=== PATIENT | female | born 1960 | race Caucasian/White ===

== ENCOUNTER 2019-01-17 11:28 | Inpatient (IN) | payer OTHER ==
[~2019-01-17] VITALS: Ht 167.6 cm; Wt 67.5 kg
[2019-01-17] MEDS: INSULIN GLARGINE [LANTus] (100 UNITS/ML) SYG SC SCH (02:45)
[2019-01-17] MEDS ORDERED: ONDANSETRON 4 MG INJ IV STA ×2 (12:06→13:52)
[2019-01-17] MEDS ORDERED: SOD CHLORIDE 0.9% 1,000 ML IV STA (12:06)
--- NOTE | 2019-01-17 12:21 | ERD ---
ER Documentation Chief Complaint Chief Complaint pt is bib family with c/o vomiting , abd pain and feeling weak x 1 wk HPI This is a 58-year-old woman who suspect she has the flu due to 2 to 3 days of cough, congestion, and multiple episodes of clear nonbloody nonbilious emesis. Patient denies abdominal pain or diarrhea, no dysuria, no chest pain or shortness of breath, no fevers or chills. Patient denies history of abdominal s urgery. ROS All systems reviewed and are negative except as per history of present illness. Medications Home Meds Active Scripts Ondansetron Hcl* (Zofran*) 4 Mg Tablet, 4 MG PO Q8H PRN for NAUSEA AND/OR VOMITING, #30 TAB Prov:SHAKILA MICHELLE MD 01/17/19 Cephalexin* (Keflex*) 500 Mg Capsule, 500 MG PO QID for 5 Days, CAP Prov:SHAKILA MICHELLE MD 01/17/19 Allergies Allergies: Coded Allergies: No Known Allergy (Unverified , 01/17/19) PMhx/Soc Medical and Surgical Hx: pt denies Medical Hx, pt denies Surgical Hx Hx Alcohol Use: No Hx Substance Use: No Hx Tobacco Use: Yes Smoking Status: Current every day smoker FmHx Family History: No diabetes Physical Exam Vitals Vital Signs Date Temp Pulse Resp B/P (MAP) Pulse Ox O2 O2 Flow FiO2 Time Delivery Rate 01/17/19 98.4 110 21 160/95 100 Room Air 16:00 (116) 01/17/19 98.4 117 21 159/97 99 Room Air 14:00 (117) 01/17/19 98.3 111 20 166/72 99 Room Air 12:17 (103) 01/17/19 98.3 117 20 128/62 99 11:30 (84) Physical Exam GENERAL: Well-developed, well-nourished, appears dehydrated, afebrile HEENT: Dry mucous membranes, pink conjunctiva, no cervical spine tenderness or step-off deformities, no goiter, no jaundice or icterus, extraocular movements intact without pain. NEURO: Alert and oriented 3, cranial nerves II through XII intact bilaterally, pupils equal round reactive to light, no focal deficits or facial asymmetry, sensation intact distally Strength 5/5 in upper and lower extremities bilat erally CARDIAC: Regular rate and rhythm, no murmurs rubs or gallops LUNGS: Clear bilaterally no wheezing crackles or stridor ABDOMEN: Soft nontender, no guarding, no rigidity, no rebound, no psoas sign no obturator sign. Normoactive bowel sounds SKIN: Warm and dry to touch, no abrasions, contusions, or hematomas, no lacerations, no ecchymosis, no target lesions, and without ulcers EXTREMITIES: No clubbing cyanosis or edema, calves are bilaterally symmetrical, no Homans sign, no popliteal cord sign. Distal pulses equal and bilateral PSYCH: Normal affect without agitation or irritability Result Diagram: 01/17/19 1210 01/17/19 1210 Results 24 hrs Laboratory Tests Test 01/17/19 12:10 01/17/19 13:11 01/17/19 13:37 01/17/19 13:53 White Blood Count 7.2 10^3/ul Red Blood Count 5.94 10^6/ul Hemoglobin 15.3 g/dl Hematocrit 46.7 % Mean Corpuscular 78.6 fl Volume Mean Corpuscular 25.8 pg Hemoglobin Mean Corpuscular 32.8 g/dl Hemoglobin Concent Red Cell 11.9 % Distribution Width Platelet Count 181 10^3/UL Mean Platelet 12.9 fl Volume Immature 0.400 % Granulocytes % Neutrophils % 68.3 % Lymphocytes % 18.7 % Monocytes % 11.9 % Eosinophils % 0.3 % Basophils % 0.4 % Nucleated Red 0.0 /100WBC Blood Cells % Immature 0.030 10^3/ul Granulocytes # Neutrophils # 4.9 10^3/ul Lymphocytes # 1.4 10^3/ul Monocytes # 0.9 10^3/ul Eosinophils # 0.0 10^3/ul Basophils # 0.0 10^3/ul Nucleated Red 0.0 10^3/ul Blood Cells # Urine Color YELLOW Urine Clarity CLOUDY Urine pH 6.0 Urine Specific 1.025 [place] Urine Ketones TRACE mg/dL Urine Nitrite NEGATIVE mg/dL Urine Bilirubin NEGATIVE mg/dL Urine Urobilinogen NEGATIVE mg/dL Urine Leukocyte 3+ Nenita/ul Esterase Urine Microscopic 8 /HPF RBC Urine Microscopic > 182 /HPF WBC Urine Squamous FEW /HPF Epithelial Cells Urine Bacteria FEW /HPF Urine Hemoglobin 1+ mg/dL Urine Glucose 3+ mg/dL Urine Total NEGATIVE mg/dl Protein Sodium Level 127 mmol/L Potassium Level 4.1 mmol/L Chloride Level 83 mmol/L Carbon Dioxide 31 mmol/L Level Anion Gap 13 Blood Urea 33 mg/dl Nitrogen Creatinine 0.68 mg/dl Est Glomerular > 60 mL/min Filtrat Rate mL/min Glucose Level 658 mg/dl Calcium Level 9.4 mg/dl Total Bilirubin 0.6 mg/dl Direct Bilirubin 0.00 mg/dl Indirect Bilirubin 0.6 mg/dl Aspartate Amino 20 IU/L Transf (AST/SGOT) Alanine 24 IU/L Aminotransferase ( ALT/SGPT) Alkaline 108 IU/L Phosphatase Troponin I < 0.012 ng/ml Total Protein 6.9 g/dl Albumin 3.9 g/dl Globulin 3.00 g/dl Albumin/Globulin 1.30 Ratio Lipase 74 U/L Urine Opiates Negative Screen Urine Barbiturates Negative Urine Amphetamines Negative Screen Urine Negative Benzodiazepines Screen Urine Cocaine Negative Screen Urine Cannabinoids Negative Bedside Glucose 531 mg/dL 510 mg/dL 437 mg/dL Test 01/17/19 16:53 Bedside Glucose 282 mg/dL Current Medications Medications Dose Sig/Sharla Start Time Status Last (Trade) Ordered Route PRN Stop Time Admin Dose Reason Admin Sodium 1,000 ml @ Q1H STAT 01/17/19 DC 01/17/19 Chloride 1,000 mls/hr IV 12:06 12:23 01/17/19 13:05 Ondansetron 4 mg ONCE STAT 01/17/19 DC 01/17/19 HCl (Zofran IV 12:06 12:23 Inj) 01/17/19 12:08 Ceftriaxone 50 ml @ ONCE ONCE 01/17/19 DC 01/17/19 Sodium 100 mls/hr IVPB 13:00 13:09 01/17/19 13:29 Insulin 10 unit ONCE STAT 01/17/19 DC 01/17/19 Human IVP 12:57 13:20 Regular 01/17/19 13:09 (Humulin R) Dextrose ONCE PRN 01/17/19 (D50w IV DECREASED 13:00 Syringe) GLUCOSE 01/17/19 23:59 1 ea NOTE XX 01/17/19 Miscellaneous 13:30 Information Glucose 15 gm Q15M PRN 01/17/19 (Glutose) PO DECREASED 13:30 GLUCOSE Glucose 22.5 gm Q15M PRN 01/17/19 (Glutose) PO DECREASED 13:30 GLUCOSE Dextrose 25 ml Q15M PRN 01/17/19 (D50w IV DECREASED 13:30 Syringe) GLUCOSE Dextrose 50 ml Q15M PRN 01/17/19 (D50w IV DECREASED 13:30 Syringe) GLUCOSE Glucagon 1 mg Q15M PRN 01/17/19 (Glucagen) IM DECREASED 13:30 GLUCOSE Glucose 15 gm Q15M PRN 01/17/19 (Glutose) BUCCAL 13:30 DECREASED GLUCOSE Ondansetron 4 mg ONCE STAT 01/17/19 DC 01/17/19 HCl (Zofran IV 13:52 13:58 Inj) 01/17/19 13:53 Sodium 1,000 ml @ Q10H IV 01/17/19 01/17/19 Chloride 100 mls/hr 14:27 15:21 IV Flush 3 ml PER 01/17/19 (NS 3 ml) PROTOCOL IV 14:30 Ondansetron 4 mg Q6H PRN 01/17/19 HCl (Zofran IV 14:30 Inj) NAUSEA/VOMITI NG 650 mg Q6H PRN 01/17/19 Acetaminophen PO .PAIN 1-3 14:30 (Tylenol OR TEMP Tab) 1 tab Q6H PRN 01/17/19 Acetaminophen PO .PAIN 4-6 14:30 / Hydrocodone Bitart ([place] (5/325)) 40 mg DAILY@06 01/17/19 DC Pantoprazole IV 14:30 (Protonix 01/17/19 14:53 Iv) Ceftriaxone 50 ml @ Q24H IVPB 01/18/19 Sodium 100 mls/hr 14:30 Discontinue ONCE ONCE 01/17/19 DC Miscellaneous current oral XX 14:30 sulfonylur... 01/17/19 16:32 Information (* Miscellaneous Pharmacy Order) Diagnostic 1 ea 02 XX 01/18/19 Test (Pha) 02:00 (Accu-Chek) ONCE ONCE 01/17/19 DC Miscellaneous HYPOGLYCEMIA XX 14:30 PROTOCOL 01/17/19 16:32 Information w... (* Miscellaneous Pharmacy Order) Insulin NOVOLOG WITH MEALS 01/17/19 01/17/19 Aspart *MILD* BEDTIME SC 18:00 17:06 (Novolog ALGORITHM Insulin Pen) Discontinue ONCE ONCE 01/17/19 DC Miscellaneous all previ... XX 14:30 01/17/19 16:32 Information (* Miscellaneous Pharmacy Order) Insulin 10 units DAILY@2000 01/17/19 Glargine SC 20:00 (Lantus) Sodium 1,000 ml @ Q1H ONCE 01/17/19 DC 01/17/19 Chloride 1,000 mls/hr IV 15:00 15:22 01/17/19 15:59 40 mg BID IV 01/17/19 UNV Pantoprazole 21:00 (Protonix Iv) Sucralfate 1 gm QID PO 01/17/19 01/17/19 (Carafate 17:00 16:55 Susp) Hydralazine 10 mg Q4H PRN 01/17/19 HCl IV sbp >160 15:00 (Apresoline) Labetalol 10 mg Q4 PRN IV 01/17/19 HCl sbp>160 15:00 (Labetalol) 1 ea NOTE XX 01/17/19 Miscellaneous 17:00 Information Glucose 15 gm Q15M PRN 01/17/19 (Glutose) PO DECREASED 17:00 GLUCOSE Glucose 22.5 gm Q15M PRN 01/17/19 (Glutose) PO DECREASED 17:00 GLUCOSE Dextrose 25 ml Q15M PRN 01/17/19 (D50w IV DECREASED 17:00 Syringe) GLUCOSE Dextrose 50 ml Q15M PRN 01/17/19 (D50w IV DECREASED 17:00 Syringe) GLUCOSE Glucagon 1 mg Q15M PRN 01/17/19 (Glucagen) IM DECREASED 17:00 GLUCOSE Glucose 15 gm Q15M PRN 01/17/19 (Glutose) BUCCAL 17:00 DECREASED GLUCOSE Procedures/MDM IV line was established patient was placed on pvc monitor rhythm strip revealed a narrow complex tachycardia at 120 bpm with upright P and T waves. Patient was afebrile EKG was performed, read by me revealed a sinus tachycardia at 112 bpm, left axis deviation, narrow QRS complex, no concerning ST elevations or depressions noted One AP view of the chest performed, read by me reveals no acute infiltrates, normal mediastinum, sharp costophrenic and cardiac borders, no air under the shane phragm. Otherwise unremarkable chest x-ray. I administered 1 L normal saline IV and Zofran 4 mg IV x2 CBC was unremarkable, electrolytes revealed dehydration with a BUN creatinine of 33/0.7, bicarb was normal, potassium normal, blood sugar elevated at 658, liver function tests were normal, troponin was negative, urinalysis positive for infection. I administered IV regular insulin for acute hyperglycemia, patient has no evidence of DKA. Also treated her here with ceftriaxone 1 g IV. Despite above therapy patient remains nauseous and dizzy, she will be admitted to [facility] for continued antibiotic and IV antibiotic therapy. Departure Diagnosis: Primary Impression: Vomiting Vomiting type: unspecified Vomiting Intractability: non-intractable Nausea presence: with nausea Qualified Codes: R11.2 - Nausea with vomiting, unspecified Additional Impressions: Dehydration Acute UTI Acute hyperglycemia Condition: SHAKILA Abbott MD January 17, 2019 12:21
[2019-01-17] MEDS ORDERED: CEPH-443 PO (12:54)
[2019-01-17] MEDS ORDERED: ONDA4TAB8 PO (12:54)
[2019-01-17] MEDS ORDERED: INSULIN REGULAR, HUMAN 100 UNIT/1 ML 3ML VIAL IVP STA (12:57)
[2019-01-17] MEDS ORDERED: DEXTROSE 50% 50 ML SYRINGE IV PRN ×5 (13:00→17:00)
[2019-01-17] MEDS ORDERED: CEFTRIAXONE 1 GM/50 ML (PMX) 50 ML IVPB ONE (13:00)
[2019-01-17] MEDS ORDERED: GLUCOSE GEL 15 GRAM TUBE PO PRN ×4 (13:30→17:00)
[2019-01-17] MEDS ORDERED: GLUCAGON 1 MG INJ IM PRN ×2 (13:30→17:00)
[2019-01-17] MEDS ORDERED: GLUCOSE GEL 15 GRAM TUBE BUCCAL PRN ×2 (13:30→17:00)
[2019-01-17] MEDS ORDERED: HYDROCODONE/APAP (5/325) TAB PO PRN (14:30)
[2019-01-17] MEDS ORDERED: ONDANSETRON 4 MG INJ IV PRN (14:30)
[2019-01-17] MEDS ORDERED: NACL 0.9% 3 ML SYG IV SCH (14:30)
[2019-01-17] MEDS ORDERED: PANTOPRAZOLE 40 MG INJ IV SCH (14:30)
--- NOTE | 2019-01-17 14:59 | HP ---
Date/Time of Note Date/Time of Note DATE: 01/17/19 TIME: 14:59 Assessment/Plan VTE Prophylaxis Pharmacological prophylaxis: other Lines/Catheters IV [facility] Saline Lock Assessment/Plan Hospital Course Patient is a female who is homeless and medically noncompliant with a past medical history significant for bipolar with depression, diabetes mellitus, hypertension who presents to [facility] for approximately 4 days of worsening nausea, vomiting, dizziness, chills, no fever. Patient states that she feels she might have had a flu or infectious disease prior and then all of a sudden has been throwing up. Patient denies any productive cough but does states she does cough at times, but no shortness of breath. Patient denies any type of abdominal pain or burning with urination or bowel or bladder dy sfunction. Patient states that she walks normally and is not currently lives in a homeless fpc. Patient states that she has been dizzy and has unstable gait due to her dizziness. No headache. Objective Physical exam General: Patient is laying in bed and answers questions appropriately Mentation: Patient is alert and oriented 4, Head: Normocephalic atraumatic Eyes: EOMI, pupils reactive to light Neck: Supple, nontender, midline Respiratory: Clear to auscultation bilaterally Cardiovascular: Tachycardic rate, no obvious murmurs Gastrointestinal: non-tender to palpation, bowel sounds heard. Neurological: Moves all extremities spontaneously Skin: No new skin lesions Assessment and plan Nausea with vomiting and inability to tolerate oral intake -Likely secondary to hyperglycemia versus other gastrointestinal discomfort, however patient has absolutely no abdominal pain. -IV fluid -Protonix -Carafate -We will likely improve as patient's sugars and volume status are corrected Volume depletion -Patient has poor p.o. intake for the past 4 days, urine is highly concentrated -Continue IV fluid Hyperglycemia -Patient is medically noncompliant, off metformin and Lantus for approximately 6 months, stated she does not have a doctor, patient is homeless -Start Lantus, patient does not know her dose -Insulin sliding scale -Bolus another liter of fluids to help with extreme hyperglycemia Hyponatremia -Very likely secondary to volume depletion secondary to above, continue IV fluid Hypertensive emergency -Secondary to above hyperglycemia, tachycardia, nausea vomiting -Treat with as needed medications, start oral medications when patient better able to tolerate p.o. Tachycardia -Likely secondary to volume depletion, continue IV hydration, if continues consider echo Questionable UTI -Dirty catch, however given patient's vague symptoms of above, continue IV antibiotic Bipolar depression -Patient took herself off the medications, states she does not want any medications to help her problems, currently not disturbing anyone, calm, normal train of thought, monitor for now Dizziness -Highly likely secondary to volume depletion and hyperglycemia -Continue IV fluids -If dizziness does not resolve with IV fluids, will consider CT or MRI to further elucidate causes of dizziness but as of right now the most likely cause is her volume depletion as patient does not have any history of dizziness in the past and only with this onset of issues. Disposition -Patient may have been suffering from a recent viral upper respiratory illness that subsequently caused her to become volume depleted and worsen her uncontrolled diabetes mellitus as she has been off all her medications. I suspect with just IV hydration and diabetic control most, if not all of patient's symptoms will be corrected. -Patient upgraded to telemetry Result Diagram: 01/17/19 1210 01/17/19 1210 Results 24hrs Laboratory Tests Test 01/17/19 12:10 01/17/19 13:11 01/17/19 13:37 01/17/19 13:53 White Blood Count 7.2 Red Blood Count 5.94 H Hemoglobin 15.3 Hematocrit 46.7 Mean Corpuscular 78.6 L Volume Mean Corpuscular 25.8 L Hemoglobin Mean Corpuscular 32.8 Hemoglobin Concent Red Cell 11.9 Distribution Width Platelet Count 181 Mean Platelet Volume 12.9 H Immature 0.400 Granulocytes % Neutrophils % 68.3 Lymphocytes % 18.7 Monocytes % 11.9 H Eosinophils % 0.3 Basophils % 0.4 Nucleated Red Blood 0.0 Cells % Immature 0.030 Granulocytes # Neutrophils # 4.9 Lymphocytes # 1.4 Monocytes # 0.9 Eosinophils # 0.0 Basophils # 0.0 Nucleated Red Blood 0.0 Cells # Urine Color YELLOW Urine Clarity CLOUDY A Urine pH 6.0 Urine Specific 1.025 [place] Urine Ketones TRACE A Urine Nitrite NEGATIVE Urine Bilirubin NEGATIVE Urine Urobilinogen NEGATIVE Urine Leukocyte 3+ H Esterase Urine Microscopic 8 H RBC Urine Microscopic > 182 H WBC Urine Squamous FEW Epithelial Cells Urine Bacteria FEW A Urine Hemoglobin 1+ H Urine Glucose 3+ H Urine Total Protein NEGATIVE Sodium Level 127 L Potassium Level 4.1 Chloride Level 83 L Carbon Dioxide Level 31 Anion Gap 13 Blood Urea Nitrogen 33 H Creatinine 0.68 Est Glomerular > 60 Filtrat Rate mL/min Glucose Level 658 *H Calcium Level 9.4 Total Bilirubin 0.6 Direct Bilirubin 0.00 Indirect Bilirubin 0.6 Aspartate Amino 20 Transf (AST/SGOT) Alanine 24 Aminotransferase (AL T/SGPT) Alkaline Phosphatase 108 Troponin I < 0.012 Total Protein 6.9 Albumin 3.9 Globulin 3.00 Albumin/Globulin 1.30 Ratio Lipase 74 Bedside Glucose 531 *H 510 *H 437 *H HPI/ROS Admit Date/Time Admit Date/Time PMH/Family/Social Past Medical History Medications Current Medications Dextrose (D50w Syringe) ONCE PRN IV DECREASED GLUCOSE; Start 01/17/19 at 13:00; Stop 01/17/19 at 23:59 Miscellaneous Information 1 ea NOTE XX ; Start 01/17/19 at 13:30 Glucose (Glutose) 15 gm Q15M PRN PO DECREASED GLUCOSE; Start 01/17/19 at 13:30 Glucose (Glutose) 22.5 gm Q15M PRN PO DECREASED GLUCOSE; Start 01/17/19 at 13:30 Dextrose (D50w Syringe) 25 ml Q15M PRN IV DECREASED GLUCOSE; Start 01/17/19 at 13:30 Dextrose (D50w Syringe) 50 ml Q15M PRN IV DECREASED GLUCOSE; Start 01/17/19 at 13:30 Glucagon (Glucagen) 1 mg Q15M PRN IM DECREASED GLUCOSE; Start 01/17/19 at 13:30 Glucose (Glutose) 15 gm Q15M PRN BUCCAL DECREASED GLUCOSE; Start 01/17/19 at 13:30 Coded Allergies: No Known Allergy (Unverified , 06/16/14) Social History Smoking Status: Current every day smoker Exam/Review of Systems Vital Signs Vitals Vital Signs Date Temp Pulse Resp B/P (MAP) Pulse Ox O2 O2 Flow FiO2 Time Delivery Rate 01/17/19 98.3 111 20 166/72 99 Room Air 12:17 (103) SHAKILA LE January 17, 2019 14:59
[2019-01-17] MEDS ORDERED: SOD CHLORIDE 0.9% 1,000 ML IV ONE (15:00)
[2019-01-17] MEDS ORDERED: LABETALOL HCL 20MG INJ IV PRN (15:00)
[2019-01-17] MEDS: SOD CHLORIDE 0.9% 1,000 ML IV SCH ×2 (15:21→23:20)
[2019-01-17] MEDS: SUCRALFATE (100 MG/ML) 10ML CUP PO SCH ×2 (16:55→21:43)
[2019-01-17] MEDS: INSULIN ASPART [NOVOLOG] 3 ML PEN SC SCH ×2 (17:06→23:02)
[2019-01-17 21:38] VITALS: PULSE 98
[2019-01-17] MEDS: FAMOTIDINE 20 MG INJ IV SCH (21:43)
[2019-01-17] MEDS: hydrALAzine 20 MG INJ IV PRN (21:44)
[2019-01-17 21:45] VITALS: BP 131/64; PULSE 113
[2019-01-17 21:50] VITALS: BP 195/102; PULSE 103; RESP 19
[2019-01-17 22:06] VITALS: Ht 167.6 cm; Wt 67.5 kg
[2019-01-17 22:45] VITALS: BP 131/58; PULSE 113
[2019-01-18] VITALS (10 sets, daily range): BP systolic 135–168; BP diastolic 60–95; PULSE 79–115; RESP 17–20
[2019-01-18] MEDS: ACCU-CHEK XX SCH ×2 (02:00→02:51)
[2019-01-18] MEDS ORDERED: POTASSIUM CHLORIDE (SR) 20 MEQ TAB PO STA (06:51)
[2019-01-18] MEDS: ACETAMINOPHEN 325 MG TAB PO PRN (07:55)
[2019-01-18] MEDS: INSULIN ASPART [NOVOLOG] 3 ML PEN SC SCH ×4 (08:00→20:05)
[2019-01-18] MEDS: SUCRALFATE (100 MG/ML) 10ML CUP PO SCH ×4 (09:22→20:01)
[2019-01-18] MEDS: FAMOTIDINE 20 MG INJ IV SCH ×2 (09:22→20:02)
[2019-01-18] MEDS: SOD CHLORIDE 0.9% 1,000 ML IV SCH (09:26)
--- NOTE | 2019-01-18 10:48 | PN ---
Date/Time of Note Date/Time of Note DATE: 01/18/19 TIME: 10:46 Assessment/Plan VTE Prophylaxis Risk score (from Nsg)>0 risk: 2 SCD applied (from Ns): No SCD contraindicated: other Pharmacological prophylaxis: NA/contraindicated Pharm contraindication: low risk/ambulating Lines/Catheters IV Catheter Type (from Nrsg): Peripheral IV Assessment/Plan Hospital Course SUBJECTIVE: Nausea improved. Denies any pain. OBJECTIVE: Physical Exam General: Adequately build 58 year-old female lying in bed in no apparent distress. HEENT: Normocephalic, atraumatic. Eyes: Anicteric sclerae, conjunctivae clear. ENT: Nasal septum is midline, oral mucosa moist. Neck supple, no JVD noticed. Respiratory: Bilaterally clear breath sounds. No use of accessory muscles of respiration. No adventitious breath sounds. Cardiovascular: S1, S2 heard. Regular rate and rhythm. Abdomen: Soft, nontender, and nondistended. Bowel sounds positive in all 4 quadrants. Genitourinary: Deferred. Extremities: No cyanosis, no clubbing, no edema. Peripheral pulses palpable. Neurologic: Cranial nerves II through XII grossly intact. The patient is awake, alert, and oriented. Skin: Normal skin turgor. No skin rashes. Labs & Vitals per chart ASSESSMENT & PLAN 58-year-old female who is homeless with comorbidities including diabetes mellitus, hypertension, bipolar disorder,and depression who came to the emergency room with multiple complaints including nausea, vomiting, dizziness, and chills with evidence of hyperglycemia (blood glucose 531) with no evidence of DKA, who was admitted to inpatient setting for further treatment and evaluation. 1. Hyperglycemia secondary to underlying uncontrolled diabetes mellitus. -Hemoglobin A1c more than 14. -Continue sliding scale insulin along with pre-meal insulin basal insulin. -Nausea and vomiting probably secondary to underlying hyperglycemia. 2. Hypertension. -Continue antihypertensives. 3. Positive urinalysis. -Suspect urinary tract infection -Continue empiric antimicrobials -Await final cultures. 4. Homeless status. -Social work consult. 5. Mood disorder. -Obtain psych evaluation. 6. Fluids, electrolytes, and nutrition. Carbohydrate controlled diet. 7.-DVT prophylaxis -Bilateral SCDs. 8. Plan. -Continue blood pressure control. -Continue appropriate blood sugar control. -Await final urine cultures. The patient was seen in collaboration with Dr. Ceja. Result Diagram: 01/18/19 0502 01/18/19 0502 Results 24hrs Laboratory Tests Test 01/17/19 12:10 01/17/19 13:11 01/17/19 13:37 01/17/19 13:53 White Blood Count 7.2 Red Blood Count 5.94 H Hemoglobin 15.3 Hematocrit 46.7 Mean Corpuscular 78.6 L Volume Mean Corpuscular 25.8 L Hemoglobin Mean Corpuscular 32.8 Hemoglobin Concent Red Cell 11.9 Distribution Width Platelet Count 181 Mean Platelet Volume 12.9 H Immature 0.400 Granulocytes % Neutrophils % 68.3 Lymphocytes % 18.7 Monocytes % 11.9 H Eosinophils % 0.3 Basophils % 0.4 Nucleated Red Blood 0.0 Cells % Immature 0.030 Granulocytes # Neutrophils # 4.9 Lymphocytes # 1.4 Monocytes # 0.9 Eosinophils # 0.0 Basophils # 0.0 Nucleated Red Blood 0.0 Cells # Urine Color YELLOW Urine Clarity CLOUDY A Urine pH 6.0 Urine Specific 1.025 [place] Urine Ketones TRACE A Urine Nitrite NEGATIVE Urine Bilirubin NEGATIVE Urine Urobilinogen NEGATIVE Urine Leukocyte 3+ H Esterase Urine Microscopic 8 H RBC Urine Microscopic > 182 H WBC Urine Squamous FEW Epithelial Cells Urine Bacteria FEW A Urine Hemoglobin 1+ H Urine Glucose 3+ H Urine Total Protein NEGATIVE Sodium Level 127 L Potassium Level 4.1 Chloride Level 83 L Carbon Dioxide Level 31 Anion Gap 13 Blood Urea Nitrogen 33 H Creatinine 0.68 Est Glomerular > 60 Filtrat Rate mL/min Glucose Level 658 *H Calcium Level 9.4 Total Bilirubin 0.6 Direct Bilirubin 0.00 Indirect Bilirubin 0.6 Aspartate Amino 20 Transf (AST/SGOT) Alanine 24 Aminotransferase (AL T/SGPT) Alkaline Phosphatase 108 Troponin I < 0.012 Total Protein 6.9 Albumin 3.9 Globulin 3.00 Albumin/Globulin 1.30 Ratio Lipase 74 Urine Opiates Screen Negative Urine Barbiturates Negative Urine Amphetamines Negative Screen Urine Negative Benzodiazepines Screen Urine Cocaine Screen Negative Urine Cannabinoids Negative Bedside Glucose 531 *H 510 *H 437 *H Test 01/17/19 16:53 01/17/19 21:31 01/18/19 02:40 01/18/19 05:02 Bedside Glucose 282 H 272 H 214 White Blood Count 6.3 Red Blood Count 4.90 Hemoglobin 12.6 Hematocrit 39.2 Mean Corpuscular 80.0 L Volume Mean Corpuscular 25.7 L Hemoglobin Mean Corpuscular 32.1 Hemoglobin Concent Red Cell 12.0 Distribution Width Platelet Count 169 Mean Platelet Volume 12.4 H Immature 0.300 Granulocytes % Neutrophils % 54.0 Lymphocytes % 32.4 Monocytes % 12.0 H Eosinophils % 0.8 Basophils % 0.5 Nucleated Red Blood 0.0 Cells % Immature 0.020 Granulocytes # Neutrophils # 3.4 Lymphocytes # 2.0 Monocytes # 0.8 Eosinophils # 0.1 Basophils # 0.0 Nucleated Red Blood 0.0 Cells # Sodium Level 134 L Potassium Level 3.3 L Chloride Level 99 # Carbon Dioxide Level 29 Anion Gap 6 Blood Urea Nitrogen 20 # Creatinine 0.51 Est Glomerular > 60 Filtrat Rate mL/min Glucose Level 220 # Hemoglobin A1c Calcium Level 7.8 L Magnesium Level 1.8 Total Bilirubin 0.4 Direct Bilirubin 0.00 Indirect Bilirubin 0.4 Aspartate Amino 22 Transf (AST/SGOT) Alanine 22 Aminotransferase (AL T/SGPT) Alkaline Phosphatase 63 Total Protein 5.4 #L Albumin 3.0 L Globulin 2.40 Albumin/Globulin 1.25 Ratio Triglycerides Level 105 Cholesterol Level 160 LDL Cholesterol, 104 Calculated HDL Cholesterol 35 L Cholesterol/HDL 4.5 Ratio Thyroid Stimulating 0.332 L Hormone (TSH) Test 01/18/19 07:54 Bedside Glucose 209 Exam/Review of Systems Exam Vitals Vital Signs Date Temp Pulse Resp B/P (MAP) Pulse Ox O2 O2 Flow FiO2 Time Delivery Rate 01/18/19 100 08:08 01/18/19 98.1 19 157/79 94 07:32 (105) 01/17/19 Room Air 20:17 Intake and Output 01/17/19 01/17/19 01/18/19 1515:00 23:00 07:00 IntakeIntake Total 1100 ml BalanceBalance 1100 ml Results Results 24hrs Laboratory Tests Test 01/17/19 12:10 01/17/19 13:11 01/17/19 13:37 01/17/19 13:53 White Blood Count 7.2 Red Blood Count 5.94 H Hemoglobin 15.3 Hematocrit 46.7 Mean Corpuscular 78.6 L Volume Mean Corpuscular 25.8 L Hemoglobin Mean Corpuscular 32.8 Hemoglobin Concent Red Cell 11.9 Distribution Width Platelet Count 181 Mean Platelet Volume 12.9 H Immature 0.400 Granulocytes % Neutrophils % 68.3 Lymphocytes % 18.7 Monocytes % 11.9 H Eosinophils % 0.3 Basophils % 0.4 Nucleated Red Blood 0.0 Cells % Immature 0.030 Granulocytes # Neutrophils # 4.9 Lymphocytes # 1.4 Monocytes # 0.9 Eosinophils # 0.0 Basophils # 0.0 Nucleated Red Blood 0.0 Cells # Urine Color YELLOW Urine Clarity CLOUDY A Urine pH 6.0 Urine Specific 1.025 [place] Urine Ketones TRACE A Urine Nitrite NEGATIVE Urine Bilirubin NEGATIVE Urine Urobilinogen NEGATIVE Urine Leukocyte 3+ H Esterase Urine Microscopic 8 H RBC Urine Microscopic > 182 H WBC Urine Squamous FEW Epithelial Cells Urine Bacteria FEW A Urine Hemoglobin 1+ H Urine Glucose 3+ H Urine Total Protein NEGATIVE Sodium Level 127 L Potassium Level 4.1 Chloride Level 83 L Carbon Dioxide Level 31 Anion Gap 13 Blood Urea Nitrogen 33 H Creatinine 0.68 Est Glomerular > 60 Filtrat Rate mL/min Glucose Level 658 *H Calcium Level 9.4 Total Bilirubin 0.6 Direct Bilirubin 0.00 Indirect Bilirubin 0.6 Aspartate Amino 20 Transf (AST/SGOT) Alanine 24 Aminotransferase (AL T/SGPT) Alkaline Phosphatase 108 Troponin I < 0.012 Total Protein 6.9 Albumin 3.9 Globulin 3.00 Albumin/Globulin 1.30 Ratio Lipase 74 Urine Opiates Screen Negative Urine Barbiturates Negative Urine Amphetamines Negative Screen Urine Negative Benzodiazepines Screen Urine Cocaine Screen Negative Urine Cannabinoids Negative Bedside Glucose 531 *H 510 *H 437 *H Test 01/17/19 16:53 01/17/19 21:31 01/18/19 02:40 01/18/19 05:02 Bedside Glucose 282 H 272 H 214 White Blood Count 6.3 Red Blood Count 4.90 Hemoglobin 12.6 Hematocrit 39.2 Mean Corpuscular 80.0 L Volume Mean Corpuscular 25.7 L Hemoglobin Mean Corpuscular 32.1 Hemoglobin Concent Red Cell 12.0 Distribution Width Platelet Count 169 Mean Platelet Volume 12.4 H Immature 0.300 Granulocytes % Neutrophils % 54.0 Lymphocytes % 32.4 Monocytes % 12.0 H Eosinophils % 0.8 Basophils % 0.5 Nucleated Red Blood 0.0 Cells % Immature 0.020 Granulocytes # Neutrophils # 3.4 Lymphocytes # 2.0 Monocytes # 0.8 Eosinophils # 0.1 Basophils # 0.0 Nucleated Red Blood 0.0 Cells # Sodium Level 134 L Potassium Level 3.3 L Chloride Level 99 # Carbon Dioxide Level 29 Anion Gap 6 Blood Urea Nitrogen 20 # Creatinine 0.51 Est Glomerular > 60 Filtrat Rate mL/min Glucose Level 220 # Hemoglobin A1c Calcium Level 7.8 L Magnesium Level 1.8 Total Bilirubin 0.4 Direct Bilirubin 0.00 Indirect Bilirubin 0.4 Aspartate Amino 22 Transf (AST/SGOT) Alanine 22 Aminotransferase (AL T/SGPT) Alkaline Phosphatase 63 Total Protein 5.4 #L Albumin 3.0 L Globulin 2.40 Albumin/Globulin 1.25 Ratio Triglycerides Level 105 Cholesterol Level 160 LDL Cholesterol, 104 Calculated HDL Cholesterol 35 L Cholesterol/HDL 4.5 Ratio Thyroid Stimulating 0.332 L Hormone (TSH) Test 01/18/19 07:54 Bedside Glucose 209 Medications Medication Current Medications Miscellaneous Information 1 ea NOTE XX ; Start 01/17/19 at 13:30 Glucose (Glutose) 15 gm Q15M PRN PO DECREASED GLUCOSE; Start 01/17/19 at 13:30 Glucose (Glutose) 22.5 gm Q15M PRN PO DECREASED GLUCOSE; Start 01/17/19 at 13:30 Dextrose (D50w Syringe) 25 ml Q15M PRN IV DECREASED GLUCOSE; Start 01/17/19 at 13:30 Dextrose (D50w Syringe) 50 ml Q15M PRN IV DECREASED GLUCOSE; Start 01/17/19 at 13:30 Glucagon (Glucagen) 1 mg Q15M PRN IM DECREASED GLUCOSE; Start 01/17/19 at 13:30 Glucose (Glutose) 15 gm Q15M PRN BUCCAL DECREASED GLUCOSE; Start 01/17/19 at 13:30 Sodium Chloride 1,000 ml @ 100 mls/hr Q10H IV Last administered on 01/18/19at 09:26; Admin Dose 100 MLS/HR; Start 01/17/19 at 14:27 IV Flush (NS 3 ml) 3 ml PER PROTOCOL IV ; Start 01/17/19 at 14:30 Ondansetron HCl (Zofran Inj) 4 mg Q6H PRN IV NAUSEA/VOMITING; Start 01/17/19 at 14:30 Acetaminophen (Tylenol Tab) 650 mg Q6H PRN PO .PAIN 1-3 OR TEMP Last administered on 01/18/19at 07:55; Admin Dose 650 MG; Start 01/17/19 at 14:30 Acetaminophen/ Hydrocodone Bitart ([place] (5/325)) 1 tab Q6H PRN PO .PAIN 4-6; Start 01/17/19 at 14:30 Ceftriaxone Sodium 50 ml @ 100 mls/hr Q24H IVPB ; Start 01/18/19 at 14:30 Diagnostic Test (Pha) (Accu-Chek) 1 ea 02 XX Last administered on 01/18/19at 02:51; Admin Dose 1 EA; Start 01/18/19 at 02:00 Insulin Aspart (Novolog Insulin Pen) NOVOLOG *MILD* ALGORITHM WITH MEALS BEDTIME SC Last administered on 01/18/19at 08:00; Admin Dose 2 UNIT; Start 01/17/19 at 18:00 Insulin Glargine (Lantus) 10 units DAILY@2000 SC Last administered on 01/17/19at 02:45; Admin Dose 10 UNITS; Start 01/17/19 at 20:00 Famotidine (Pepcid Iv) 20 mg BID IV Last administered on 01/18/19at 09:22; Admin Dose 20 MG; Start 01/17/19 at 21:00 Sucralfate (Carafate Susp) 1 gm QID PO Last administered on 01/18/19at 09:22; Admin Dose 1 GM; Start 01/17/19 at 17:00 Hydralazine HCl (Apresoline) 10 mg Q4H PRN IV sbp >160 Last administered on 12/26 12/13at 21:44; Admin Dose 10 MG; Start 01/17/19 at 15:00 Labetalol HCl (Labetalol) 10 mg Q4 PRN IV sbp>160; Start 01/17/19 at 15:00 Miscellaneous Information 1 ea NOTE XX ; Start 01/17/19 at 17:00 Glucose (Glutose) 15 gm Q15M PRN PO DECREASED GLUCOSE; Start 01/17/19 at 17:00 Glucose (Glutose) 22.5 gm Q15M PRN PO DECREASED GLUCOSE; Start 01/17/19 at 17:00 Dextrose (D50w Syringe) 25 ml Q15M PRN IV DECREASED GLUCOSE; Start 01/17/19 at 17:00 Dextrose (D50w Syringe) 50 ml Q15M PRN IV DECREASED GLUCOSE; Start 01/17/19 at 17:00 Glucagon (Glucagen) 1 mg Q15M PRN IM DECREASED GLUCOSE; Start 01/17/19 at 17:00 Glucose (Glutose) 15 gm Q15M PRN BUCCAL DECREASED GLUCOSE; Start 01/17/19 at 17:00 NURIA ROMERO NP January 18, 2019 10:47
[2019-01-18] MEDS: LISINOPRIL 5 MG TAB PO SCH (11:42)
[2019-01-18] MEDS ORDERED: CEFTRIAXONE 1 GM/50 ML (PMX) 50 ML IVPB SCH (14:30)
[2019-01-18] MEDS: INSULIN GLARGINE [LANTus] (100 UNITS/ML) SYG SC SCH (20:00)
[2019-01-19 02:20] VITALS: BP_SYST 137; BP_SYST 166; BP_DIAS 73; BP_DIAS 79; PULSE 100; PULSE 87; RESP 16
[2019-01-19] MEDS: ACCU-CHEK XX SCH (02:55)
[2019-01-19 02:57] VITALS: BP 135/66; PULSE 77
[2019-01-19 07:57] VITALS: BP 139/72; PULSE 91; RESP 20
[2019-01-19] MEDS: FAMOTIDINE 20 MG INJ IV SCH ×2 (08:13→20:42)
[2019-01-19] MEDS: SUCRALFATE (100 MG/ML) 10ML CUP PO SCH ×4 (08:13→20:42)
[2019-01-19] MEDS: LISINOPRIL 5 MG TAB PO SCH (08:14)
[2019-01-19] MEDS: INSULIN ASPART [NOVOLOG] 3 ML PEN SC SCH ×5 (08:20→20:49)
[2019-01-19] MEDS ORDERED: MEROPENEM 1 GM/50ML(PMX) 50 ML IVPB SCH (11:00)
--- NOTE | 2019-01-19 13:09 | PN ---
Date/Time of Note Date/Time of Note DATE: 01/19/19 TIME: 13:06 Assessment/Plan VTE Prophylaxis Risk score (from Nsg)>0 risk: 1 SCD applied (from Nsg): Yes Pharmacological prophylaxis: NA/contraindicated Pharm contraindication: low risk/ambulating Lines/Catheters IV Catheter Type (from Nrsg): Peripheral IV Assessment/Plan Hospital Course SUBJECTIVE: Nausea improved. Denies any pain. OBJECTIVE: Physical Exam General: Adequately build 58 year-old female lying in bed in no apparent distress. HEENT: Normocephalic, atraumatic. Eyes: Anicteric sclerae, conjunctivae clear. ENT: Nasal septum is midline, oral mucosa moist. Neck supple, no JVD noticed. Respiratory: Bilaterally clear breath sounds. No use of accessory muscles of respiration. No adventitious breath sounds. Cardiovascular: S1, S2 heard. Regular rate and rhythm. Abdomen: Soft, nontender, and nondistended. Bowel sounds positive in all 4 quadrants. Genitourinary: Deferred. Extremities: No cyanosis, no clubbing, no edema. Peripheral pulses palpable. Neurologic: Cranial nerves II through XII grossly intact. The patient is awake, alert, and oriented. Skin: Normal skin turgor. No skin rashes. Labs & Vitals per chart ASSESSMENT & PLAN 58-year-old female who is homeless with comorbidities including diabetes mellitus, hypertension, bipolar disorder,and depression who came to the emergency room with multiple complaints including nausea, vomiting, dizziness, and chills with evidence of hyperglycemia (blood glucose 531) with no evidence of DKA, who was admitted to inpatient setting for further treatment and evaluation. 1. Hyperglycemia secondary to underlying uncontrolled diabetes mellitus. -Hemoglobin A1c more than 14. -Continue sliding scale insulin along with pre-meal insulin basal insulin. -Nausea and vomiting probably secondary to underlying hyperglycemia. 2. Hypertension. -Continue antihypertensives. 3. E. coli ESBL urinary tract infection. -Change antibiotics to carbapenems. -Obtain ID consult. 4. Homeless status. -Social work consult. 5. Mood disorder. -Pending psych evaluation. 6. Fluids, electrolytes, and nutrition. Carbohydrate controlled diet. 7.-DVT prophylaxis -Bilateral SCDs. 8. Plan. -Continue blood pressure control. -Continue appropriate blood sugar control. -Changed ABX to carbapenems. -Obtain ID consult. The patient was seen in collaboration with Dr. Ceja. Result Diagram: 01/19/19 0538 01/19/19 0538 Results 24hrs Laboratory Tests Test 01/18/19 16:58 01/18/19 20:00 01/19/19 02:44 01/19/19 05:38 Bedside Glucose 225 H 313 H 240 H White Blood Count 5.9 Red Blood Count 4.81 Hemoglobin 12.4 Hematocrit 38.8 Mean Corpuscular 80.7 L Volume Mean Corpuscular 25.8 L Hemoglobin Mean Corpuscular 32.0 Hemoglobin Concent Red Cell 11.9 Distribution Width Platelet Count 147 Mean Platelet Volume 12.2 H Immature 0.500 H Granulocytes % Neutrophils % 47.1 Lymphocytes % 40.4 Monocytes % 10.3 Eosinophils % 1.2 Basophils % 0.5 Nucleated Red Blood 0.0 Cells % Immature 0.030 Granulocytes # Neutrophils # 2.8 Lymphocytes # 2.4 Monocytes # 0.6 Eosinophils # 0.1 Basophils # 0.0 Nucleated Red Blood 0.0 Cells # Sodium Level 137 Potassium Level 3.7 Chloride Level 104 Carbon Dioxide Level 29 Anion Gap 4 L Blood Urea Nitrogen 8 # Creatinine 0.47 Est Glomerular > 60 Filtrat Rate mL/min Glucose Level 217 Calcium Level 8.2 L Phosphorus Level 2.3 L Magnesium Level 2.0 Test 01/19/19 08:16 01/19/19 12:18 Bedside Glucose 187 280 H Exam/Review of Systems Exam Vitals Vital Signs Date Temp Pulse Resp B/P (MAP) Pulse Ox O2 O2 Flow FiO2 Time Delivery Rate 01/19/19 98.1 91 20 139/72 94 07:57 (94) 01/18/19 Room Air 21:25 Intake and Output 01/18/19 01/18/19 01/19/19 1515:00 23:00 07:00 IntakeIntake Total 1470 ml BalanceBalance 1470 ml Results Results 24hrs Laboratory Tests Test 01/18/19 16:58 01/18/19 20:00 01/19/19 02:44 01/19/19 05:38 Bedside Glucose 225 H 313 H 240 H White Blood Count 5.9 Red Blood Count 4.81 Hemoglobin 12.4 Hematocrit 38.8 Mean Corpuscular 80.7 L Volume Mean Corpuscular 25.8 L Hemoglobin Mean Corpuscular 32.0 Hemoglobin Concent Red Cell 11.9 Distribution Width Platelet Count 147 Mean Platelet Volume 12.2 H Immature 0.500 H Granulocytes % Neutrophils % 47.1 Lymphocytes % 40.4 Monocytes % 10.3 Eosinophils % 1.2 Basophils % 0.5 Nucleated Red Blood 0.0 Cells % Immature 0.030 Granulocytes # Neutrophils # 2.8 Lymphocytes # 2.4 Monocytes # 0.6 Eosinophils # 0.1 Basophils # 0.0 Nucleated Red Blood 0.0 Cells # Sodium Level 137 Potassium Level 3.7 Chloride Level 104 Carbon Dioxide Level 29 Anion Gap 4 L Blood Urea Nitrogen 8 # Creatinine 0.47 Est Glomerular > 60 Filtrat Rate mL/min Glucose Level 217 Calcium Level 8.2 L Phosphorus Level 2.3 L Magnesium Level 2.0 Test 01/19/19 08:16 01/19/19 12:18 Bedside Glucose 187 280 H Medications Medication Current Medications Miscellaneous Information 1 ea NOTE XX ; Start 01/17/19 at 13:30 Glucose (Glutose) 15 gm Q15M PRN PO DECREASED GLUCOSE; Start 01/17/19 at 13:30 Glucose (Glutose) 22.5 gm Q15M PRN PO DECREASED GLUCOSE; Start 01/17/19 at 13:30 Dextrose (D50w Syringe) 25 ml Q15M PRN IV DECREASED GLUCOSE; Start 01/17/19 at 13:30 Dextrose (D50w Syringe) 50 ml Q15M PRN IV DECREASED GLUCOSE; Start 01/17/19 at 13:30 Glucagon (Glucagen) 1 mg Q15M PRN IM DECREASED GLUCOSE; Start 01/17/19 at 13:30 Glucose (Glutose) 15 gm Q15M PRN BUCCAL DECREASED GLUCOSE; Start 01/17/19 at 13:30 IV Flush (NS 3 ml) 3 ml PER PROTOCOL IV ; Start 01/17/19 at 14:30 Ondansetron HCl (Zofran Inj) 4 mg Q6H PRN IV NAUSEA/VOMITING; Start 01/17/19 at 14:30 Acetaminophen (Tylenol Tab) 650 mg Q6H PRN PO .PAIN 1-3 OR TEMP Last administered on 01/18/19at 07:55; Admin Dose 650 MG; Start 01/17/19 at 14:30 Acetaminophen/ Hydrocodone Bitart ([place] (5/325)) 1 tab Q6H PRN PO .PAIN 4-6; Start 01/17/19 at 14:30 Diagnostic Test (Pha) (Accu-Chek) 1 ea 02 XX Last administered on 01/19/19at 02:55; Admin Dose 1 EA; Start 01/18/19 at 02:00 Insulin Aspart (Novolog Insulin Pen) NOVOLOG *MILD* ALGORITHM WITH MEALS BEDTIME SC Last administered on 01/19/19at 12:26; Admin Dose 4 UNIT; Start 01/17/19 at 18:00 Insulin Glargine (Lantus) 10 units DAILY@2000 SC Last administered on 01/18/19at 20:00; Admin Dose 10 UNITS; Start 01/17/19 at 20:00 Famotidine (Pepcid Iv) 20 mg BID IV Last administered on 01/19/19at 08:13; Admin Dose 20 MG; Start 01/17/19 at 21:00 Sucralfate (Carafate Susp) 1 gm QID PO Last administered on 01/19/19at 12:26; Admin Dose 1 GM; Start 01/17/19 at 17:00 Hydralazine HCl (Apresoline) 10 mg Q4H PRN IV sbp >160 Last administered on 01/17/19at 21:44; Admin Dose 10 MG; Start 01/17/19 at 15:00 Labetalol HCl (Labetalol) 10 mg Q4 PRN IV sbp>160; Start 01/17/19 at 15:00 Miscellaneous Information 1 ea NOTE XX ; Start 01/17/19 at 17:00 Glucose (Glutose) 15 gm Q15M PRN PO DECREASED GLUCOSE; Start 01/17/19 at 17:00 Glucose (Glutose) 22.5 gm Q15M PRN PO DECREASED GLUCOSE; Start 01/17/19 at 17:00 Dextrose (D50w Syringe) 25 ml Q15M PRN IV DECREASED GLUCOSE; Start 01/17/19 at 17:00 Dextrose (D50w Syringe) 50 ml Q15M PRN IV DECREASED GLUCOSE; Start 01/17/19 at 17:00 Glucagon (Glucagen) 1 mg Q15M PRN IM DECREASED GLUCOSE; Start 01/17/19 at 17:00 Glucose (Glutose) 15 gm Q15M PRN BUCCAL DECREASED GLUCOSE; Start 01/17/19 at 17:00 Lisinopril (Zestril) 5 mg DAILY PO Last administered on 01/19/19at 08:14; Admin Dose 5 MG; Start 01/18/19 at 11:00 Meropenem/Sodium Chloride 50 ml @ 100 mls/hr Q8 IVPB Last administered on 01/19/19at 11:57; Admin Dose 100 MLS/HR; Start 01/19/19 at 11:00 NURIA ROMERO NP January 19, 2019 13:09
[2019-01-19 13:56] VITALS: BP 135/70; PULSE 90; RESP 20
[2019-01-19 19:45] VITALS: BP 174/86; PULSE 89; RESP 18
[2019-01-19] MEDS: ACETAMINOPHEN 325 MG TAB PO PRN (19:46)
[2019-01-19] MEDS: hydrALAzine 20 MG INJ IV PRN (19:47)
[2019-01-19] MEDS ORDERED: INSULIN GLARGINE [LANTus] (100 UNITS/ML) SYG SC SCH (20:00)
[2019-01-19] MEDS: LEVOFLOXACIN 500MG/D5W (PMX) 100 ML IVPB SCH (22:15)
--- NOTE | 2019-01-19 23:37 | CONS ---
DATE OF ADMISSION: 01/17/2019 DATE OF CONSULTATION: 01/19/2019 Infectious disease consultation for Dr. Mayo Maxwell. REQUESTING PHYSICIAN: Demetrio Zurita M.D. HISTORY OF PRESENT ILLNESS: The patient is a 58-year-old white female who was admitted on 01/17/2019 with a chief complaint of "flu" after approximately 2 to 3-day history of cough, congestion, episode s of nonbilious bloody emesis. She came to the hospital taking Keflex. Her temperature was afebrile when she arrived, pulse is 110, respirations 20, O2 saturation 100% on room air, temperature 98.8. White blood cell count 7200, hemoglobin 15.3 grams and hematocrit 48%. Urinalysis yellow, clear with specific gravity of 1.025. The pH 6, trace ketones, +3 leukocyte esterase, greater than 182, WBCs/R BCs 8. Sodium 127, potassium 4.1, BUN 33, CO2 31. Culture and sensitivity of urine grew E. coli, re sistant to ampicillin and cefazolin. The patient was begun on ceftriaxone and then changed to merope nem. Chest x-ray was clear, but had mild basilar atelectasis, which had improved since the previous film. Glucose was 658. PAST MEDICAL HISTORY: The patient had a history of diabetes mellitus but was noncompliant, even thou gh she has and she is homeless. She did not have any medication or did not take it with her. The patient has a history of tobacco use. PHYSICAL EXAMINATION GENERAL: Revealed a well-developed female in no acute distress. She is a reasonable historian. VITAL SIGNS: Her vital signs are pulse of 89, respiratory rate 18, blood pressure 174/86, O2 saturat ion 95% on room air. HEENT: The pupils are equal, round and react to light. Extraocular movements are full. Mouth has m oist mucous membranes. NECK: Supple, no jugular venous distention. CHEST: Clear to auscultation. HEART: Regular. No gallop, murmur or rub. ABDOMEN: Soft, no palpable organs, masses or tenderness. EXTREMITIES: Reveal no edema, cyanosis, or clubbing. There is no CVA tenderness. INITIAL IMPRESSION: 1. Urinary tract infection with multiple drug resistant E. coli. 2. Dehydration. 3. Uncontrolled diabetes mellitus. 4. Hyponatremia. 5. Hypertension. 6. Tobacco use. 7. Hyperlipidemia. 8. Bipolar disorder. 9. Homeless. RECOMMENDATIONS: Change to Levaquin for seven days IV or oral. Also, will obtain a renal ultrasound , rehydrate the patient and correct the diabetes. Dictated By: Jossie SHAFFER MD EC/NTS Conf#: [id number] DID#: [id number] CC: DEMETRIO ZURITA MD;*EndCC*
[2019-01-20] VITALS (7 sets, daily range): BP systolic 116–187; BP diastolic 57–95; PULSE 78–104; RESP 17–18
[2019-01-20] MEDS: ACCU-CHEK XX SCH (02:00)
[2019-01-20] MEDS: SUCRALFATE (100 MG/ML) 10ML CUP PO SCH ×4 (08:15→20:13)
[2019-01-20] MEDS: FAMOTIDINE 20 MG TAB PO SCH ×2 (08:15→20:13)
[2019-01-20] MEDS: LISINOPRIL 5 MG TAB PO SCH (08:16)
[2019-01-20] MEDS: INSULIN ASPART [NOVOLOG] 3 ML PEN SC SCH ×6 (08:23→20:22)
[2019-01-20] MEDS: hydrALAzine 20 MG INJ IV PRN (10:56)
--- NOTE | 2019-01-20 14:33 | PN ---
Date/Time of Note Date/Time of Note DATE: 01/20/19 TIME: 14:28 Assessment/Plan VTE Prophylaxis Risk score (from Nsg)>0 risk: 1 SCD applied (from Nsg): Yes Pharmacological prophylaxis: NA/contraindicated Pharm contraindication: low risk/ambulating Lines/Catheters IV Catheter Type (from Nrsg): Peripheral IV Assessment/Plan Hospital Course SUBJECTIVE: Nausea improved. Denies any pain. Blood sugars running high. OBJECTIVE: Physical Exam General: Adequately build 58 year-old female lying in bed in no apparent distress. HEENT: Normocephalic, atraumatic. Eyes: Anicteric sclerae, conjunctivae clear. ENT: Nasal septum is midline, oral mucosa moist. Neck supple, no JVD noticed. Respiratory: Bilaterally clear breath sounds. No use of accessory muscles of respiration. No adventitious breath sounds. Cardiovascular: S1, S2 heard. Regular rate and rhythm. Abdomen: Soft, nontender, and nondistended. Bowel sounds positive in all 4 quadrants. Genitourinary: Deferred. Extremities: No cyanosis, no clubbing, no edema. Peripheral pulses palpable. Neurologic: Cranial nerves II through XII grossly intact. The patient is awake, alert, and oriented. Skin: Normal skin turgor. No skin rashes. Labs & Vitals per chart ASSESSMENT & PLAN 58-year-old female who is homeless with comorbidities including diabetes mellitus, hypertension, bipolar disorder,and depression who came to the emergency room with multiple complaints including nausea, vomiting, dizziness, and chills with evidence of hyperglycemia (blood glucose 531) with no evidence of DKA, who was admitted to inpatient setting for further treatment and evaluation. 1. Hyperglycemia secondary to underlying uncontrolled diabetes mellitus. -Hemoglobin A1c more than 14. -Continue sliding scale insulin along with pre-meal insulin basal insulin. -Nausea and vomiting probably secondary to underlying hyperglycemia. 2. Hypertension. -Continue antihypertensives. 3. E. coli ESBL urinary tract infection. -Continue ABX as per ID. 4. Homeless status. -Social work consult. 5. Mood disorder. -Pending psych evaluation. 6. Fluids, electrolytes, and nutrition. Carbohydrate controlled diet. 7.-DVT prophylaxis -Bilateral SCDs. 8. Plan. -Continue blood pressure control. -Continue appropriate blood sugar control. -Await clinical improvement. The patient was seen in collaboration with Dr. Toribio. Result Diagram: 01/20/19 0451 01/20/19 0451 Results 24hrs Laboratory Tests Test 01/19/19 17:53 01/19/19 20:43 01/20/19 02:32 01/20/19 04:51 Bedside Glucose 211 309 H 265 H White Blood Count 5.4 Red Blood Count 5.19 Hemoglobin 13.2 Hematocrit 41.6 Mean Corpuscular 80.2 L Volume Mean Corpuscular 25.4 L Hemoglobin Mean Corpuscular 31.7 L Hemoglobin Concent Red Cell 11.9 Distribution Width Platelet Count 153 Mean Platelet Volume 11.9 H Immature 1.100 H Granulocytes % Neutrophils % 46.0 Lymphocytes % 41.0 Monocytes % 9.3 Eosinophils % 1.7 Basophils % 0.9 Nucleated Red Blood 0.0 Cells % Immature 0.060 H Granulocytes # Neutrophils # 2.5 Lymphocytes # 2.2 Monocytes # 0.5 Eosinophils # 0.1 Basophils # 0.1 Nucleated Red Blood 0.0 Cells # Sodium Level 136 Potassium Level 3.9 Chloride Level 104 Carbon Dioxide Level 26 Anion Gap 6 Blood Urea Nitrogen 16 Creatinine 0.55 Est Glomerular > 60 Filtrat Rate mL/min Glucose Level 246 H Calcium Level 8.7 Phosphorus Level 3.3 Magnesium Level 1.8 Test 01/20/19 08:19 01/20/19 12:26 Bedside Glucose 221 H 253 H Exam/Review of Systems Exam Vitals Vital Signs Date Temp Pulse Resp B/P (MAP) Pulse Ox O2 O2 Flow FiO2 Time Delivery Rate 01/20/19 98 125/66 12:19 (85) 01/20/19 97.7 18 96 08:13 01/18/19 Room Air 21:25 Intake and Output 01/19/19 01/19/19 01/20/19 1515:00 23:00 07:00 IntakeIntake Total 1570 ml 520 ml 100 ml BalanceBalance 1570 ml 520 ml 100 ml Results Results 24hrs Laboratory Tests Test 01/19/19 17:53 01/19/19 20:43 01/20/19 02:32 01/20/19 04:51 Bedside Glucose 211 309 H 265 H White Blood Count 5.4 Red Blood Count 5.19 Hemoglobin 13.2 Hematocrit 41.6 Mean Corpuscular 80.2 L Volume Mean Corpuscular 25.4 L Hemoglobin Mean Corpuscular 31.7 L Hemoglobin Concent Red Cell 11.9 Distribution Width Platelet Count 153 Mean Platelet Volume 11.9 H Immature 1.100 H Granulocytes % Neutrophils % 46.0 Lymphocytes % 41.0 Monocytes % 9.3 Eosinophils % 1.7 Basophils % 0.9 Nucleated Red Blood 0.0 Cells % Immature 0.060 H Granulocytes # Neutrophils # 2.5 Lymphocytes # 2.2 Monocytes # 0.5 Eosinophils # 0.1 Basophils # 0.1 Nucleated Red Blood 0.0 Cells # Sodium Level 136 Potassium Level 3.9 Chloride Level 104 Carbon Dioxide Level 26 Anion Gap 6 Blood Urea Nitrogen 16 Creatinine 0.55 Est Glomerular > 60 Filtrat Rate mL/min Glucose Level 246 H Calcium Level 8.7 Phosphorus Level 3.3 Magnesium Level 1.8 Test 01/20/19 08:19 01/20/19 12:26 Bedside Glucose 221 H 253 H Medications Medication Current Medications IV Flush (NS 3 ml) 3 ml PER PROTOCOL IV ; Start 01/17/19 at 14:30 Ondansetron HCl (Zofran Inj) 4 mg Q6H PRN IV NAUSEA/VOMITING; Start 01/17/19 at 14:30 Acetaminophen (Tylenol Tab) 650 mg Q6H PRN PO .PAIN 1-3 OR TEMP Last administered on 01/19/19at 19:46; Admin Dose 650 MG; Start 01/17/19 at 14:30 Acetaminophen/ Hydrocodone Bitart ([place] (5/325)) 1 tab Q6H PRN PO .PAIN 4-6; Start 01/17/19 at 14:30 Diagnostic Test (Pha) (Accu-Chek) 1 ea 02 XX Last administered on 01/19/19at 02:55; Admin Dose 1 EA; Start 01/18/19 at 02:00 Insulin Aspart (Novolog Insulin Pen) NOVOLOG *MILD* ALGORITHM WITH MEALS BEDTIME SC Last administered on 01/20/19at 12:31; Admin Dose 3 UNIT; Start 01/17/19 at 18:00 Sucralfate (Carafate Susp) 1 gm QID PO Last administered on 01/20/19at 12:28; Admin Dose 1 GM; Start 01/17/19 at 17:00 Hydralazine HCl (Apresoline) 10 mg Q4H PRN IV sbp >160 Last administered on 01/20/19at 10:56; Admin Dose 10 MG; Start 01/17/19 at 15:00 Labetalol HCl (Labetalol) 10 mg Q4 PRN IV sbp>160; Start 01/17/19 at 15:00 Miscellaneous Information 1 ea NOTE XX ; Start 01/17/19 at 17:00 Glucose (Glutose) 15 gm Q15M PRN PO DECREASED GLUCOSE; Start 01/17/19 at 17:00 Glucose (Glutose) 22.5 gm Q15M PRN PO DECREASED GLUCOSE; Start 01/17/19 at 17:00 Dextrose (D50w Syringe) 25 ml Q15M PRN IV DECREASED GLUCOSE; Start 01/17/19 at 17:00 Dextrose (D50w Syringe) 50 ml Q15M PRN IV DECREASED GLUCOSE; Start 01/17/19 at 17:00 Glucagon (Glucagen) 1 mg Q15M PRN IM DECREASED GLUCOSE; Start 01/17/19 at 17:00 Glucose (Glutose) 15 gm Q15M PRN BUCCAL DECREASED GLUCOSE; Start 01/17/19 at 17:00 Lisinopril (Zestril) 5 mg DAILY PO Last administered on 01/20/19at 08:16; Admin Dose 5 MG; Start 01/18/19 at 11:00 Insulin Glargine (Lantus) 12 units DAILY@2000 SC Last administered on 01/19/19at 20:48; Admin Dose 12 UNITS; Start 01/19/19 at 20:00 Insulin Aspart (Novolog Insulin Pen) 3 unit WITH MEALS SC Last administered on 01/20/19at 12:32; Admin Dose 3 UNIT; Start 01/19/19 at 18:00 Levofloxacin/ Dextrose 100 ml @ 100 mls/hr Q24H IVPB Last administered on 01/19/19at 22:15; Admin Dose 100 MLS/HR; Start 01/19/19 at 22:00; Stop 01/30/19 at 15:30 Famotidine (Pepcid) 20 mg BID PO Last administered on 01/20/19at 08:15; Admin Dose 20 MG; Start 01/20/19 at 09:00 NURIA ROMERO NP January 20, 2019 14:33
--- NOTE | 2019-01-20 16:18 | CONS ---
Assessment/Plan Assessment/Plan Hospital Course (Demo Recall) ID NOTE CURRENT ABX: DAY #=>Levaquin 01/20/1945001/20/19 045 24H INTERVAL SUMMARY * Patient is resting in bed, no fevers, VSS, NAD, no complaints MICRO/OTHER * 01/17/19 URINE CX: URINE CULTURE Final Organism 1 ESCHERICHIA COLI (ESBL) COLONY COUNT >100,000 CFU/ml . MULTI DRUG RESISTANT ORGANISM ECOLI ESBL ECOLI ESBL M.I.C. RX M.I.C. RX --------- --- --------- --- AMPICILLIN >=32 R CEFAZOLIN R CEFEPIME <=1 S CEFOTAXIME R CIPROFLOXACIN <=0.25 S GENTAMICIN <=1 S LEVOFLOXACIN <=0.12 S MEROPENEM 0.008 S NITROFURANTOIN <=16 S TOBRAMYCIN <=1 S TRIMETHOPRIM/SULFAMETHOXAZOLE <=20 S PIPERACILLIN/TAZOBACTAM <=4 S IMAGING * 01/20/19 RENAL US: Unremarkable renal ultrasound. * 01/17/19 CXR: No radiographic evidence of an acute cardiopulmonary process. Mild bibasilar atelectasis. PHYSICAL EXAMINATION: GENERAL: VSS, NAD, awake, alert, oriented HEENT: AT, NC NECK: WNL CHEST: Equal chest rise bilaterally without dyspnea on observation EXTREMITIES: Warm, dry SKIN: No rash, no diaphoresis ID ASSESSMENT 58 yo F admit with: 1. Urinary tract infection with multiple drug resistant E. coli. 2. Dehydration. 3. Uncontrolled diabetes mellitus. 4. Hyponatremia. 5. Hypertension. 6. Tobacco use. 7. Hyperlipidemia. 8. Bipolar disorder. 9. Homeless. ABX ALLERGIES: KNDA INVASIVES: PIV CURRENT ABX: DAY # =>Levaquin ID RECOMMENDATIONS/PLAN: 1. Dr. Underwood recommending Levaquin for ESBL which is 2nd line choice PO ABX 2. Alternative is Macrobid 100mg PO BID x 10 days which is 1st line PO ABX of choice per [facility] Guide to ABX & [place] Guide as LEAST LIKELY PO ABX to develop RESISTANCE TO ESBL. * NOTE: ESBL develops resistance quickly to Bactrim and Zosyn despite "in-Vitro" sensitivity and is neither are approved for ESBL "In-Vivo" Consultation Date/Type/Reason Admit Date/Time January 17, 2019 at 14:25 Initial Consult Date Date/Time of Note DATE: 01/20/19 TIME: 15:52 Exam/Review of Systems Exam Vitals Vital Signs Date Temp Pulse Resp B/P (MAP) Pulse Ox O2 O2 Flow FiO2 Time Delivery Rate 01/20/19 98.3 104 17 132/68 98 14:55 (89) 01/18/19 Room Air 21:25 Intake and Output 01/19/19 01/19/19 01/20/19 1515:00 23:00 07:00 IntakeIntake Total 1570 ml 520 ml 100 ml BalanceBalance 1570 ml 520 ml 100 ml Results Result Diagram: 01/20/19 0451 01/20/19 0451 Results 24hrs Laboratory Tests Test 01/19/19 17:53 01/19/19 20:43 01/20/19 02:32 01/20/19 04:51 Bedside Glucose 211 309 H 265 H White Blood Count 5.4 Red Blood Count 5.19 Hemoglobin 13.2 Hematocrit 41.6 Mean Corpuscular 80.2 L Volume Mean Corpuscular 25.4 L Hemoglobin Mean Corpuscular 31.7 L Hemoglobin Concent Red Cell 11.9 Distribution Width Platelet Count 153 Mean Platelet Volume 11.9 H Immature 1.100 H Granulocytes % Neutrophils % 46.0 Lymphocytes % 41.0 Monocytes % 9.3 Eosinophils % 1.7 Basophils % 0.9 Nucleated Red Blood 0.0 Cells % Immature 0.060 H Granulocytes # Neutrophils # 2.5 Lymphocytes # 2.2 Monocytes # 0.5 Eosinophils # 0.1 Basophils # 0.1 Nucleated Red Blood 0.0 Cells # Sodium Level 136 Potassium Level 3.9 Chloride Level 104 Carbon Dioxide Level 26 Anion Gap 6 Blood Urea Nitrogen 16 Creatinine 0.55 Est Glomerular > 60 Filtrat Rate mL/min Glucose Level 246 H Calcium Level 8.7 Phosphorus Level 3.3 Magnesium Level 1.8 Test 01/20/19 08:19 01/20/19 12:26 Bedside Glucose 221 H 253 H Medications Medication Current Medications IV Flush (NS 3 ml) 3 ml PER PROTOCOL IV ; Start 01/17/19 at 14:30 Ondansetron HCl (Zofran Inj) 4 mg Q6H PRN IV NAUSEA/VOMITING; Start 01/17/19 at 14:30 Acetaminophen (Tylenol Tab) 650 mg Q6H PRN PO .PAIN 1-3 OR TEMP Last administered on 01/19/19at 19:46; Admin Dose 650 MG; Start 01/17/19 at 14:30 Acetaminophen/ Hydrocodone Bitart ([place] (5/325)) 1 tab Q6H PRN PO .PAIN 4-6; Start 01/17/19 at 14:30 Diagnostic Test (Pha) (Accu-Chek) 1 ea 02 XX Last administered on 01/19/19at 0 2:55; Admin Dose 1 EA; Start 01/18/19 at 02:00 Insulin Aspart (Novolog Insulin Pen) NOVOLOG *MILD* ALGORITHM WITH MEALS BEDTIME SC Last administered on 01/20/19at 12:31; Admin Dose 3 UNIT; Start 12/26 12/13 at 18:00 Sucralfate (Carafate Susp) 1 gm QID PO Last administered on 01/20/19at 12:28; Admin Dose 1 GM; Start 01/17/19 at 17:00 Hydralazine HCl (Apresoline) 10 mg Q4H PRN IV sbp >160 Last administered on 01/20/19at 10:56; Admin Dose 10 MG; Start 01/17/19 at 15:00 Labetalol HCl (Labetalol) 10 mg Q4 PRN IV sbp>160; Start 01/17/19 at 15:00 Miscellaneous Information 1 ea NOTE XX ; Start 01/17/19 at 17:00 Glucose (Glutose) 15 gm Q15M PRN PO DECREASED GLUCOSE; Start 01/17/19 at 17:00 Glucose (Glutose) 22.5 gm Q15M PRN PO DECREASED GLUCOSE; Start 01/17/19 at 17:00 Dextrose (D50w Syringe) 25 ml Q15M PRN IV DECREASED GLUCOSE; Start 01/17/19 at 17:00 Dextrose (D50w Syringe) 50 ml Q15M PRN IV DECREASED GLUCOSE; Start 01/17/19 at 17:00 Glucagon (Glucagen) 1 mg Q15M PRN IM DECREASED GLUCOSE; Start 01/17/19 at 17:00 Glucose (Glutose) 15 gm Q15M PRN BUCCAL DECREASED GLUCOSE; Start 01/17/19 at 17:00 Lisinopril (Zestril) 5 mg DAILY PO Last administered on 01/20/19at 08:16; Admin Dose 5 MG; Start 01/18/19 at 11:00 Levofloxacin/ Dextrose 100 ml @ 100 mls/hr Q24H IVPB Last administered on 01/19/19at 22:15; Admin Dose 100 MLS/HR; Start 01/19/19 at 22:00; Stop 01/30/19 at 15:30 Famotidine (Pepcid) 20 mg BID PO Last administered on 01/20/19at 08:15; Admin Dose 20 MG; Start 01/20/19 at 09:00 Insulin Aspart (Novolog Insulin Pen) 4 unit WITH MEALS SC ; Start 01/20/19 at 18:00 Insulin Glargine (Lantus) 14 units DAILY@2000 SC ; Start 01/20/19 at 20:00 ARUN DIXON NP January 20, 2019 16:14
[2019-01-20] MEDS ORDERED: INSULIN ASPART [NOVOLOG] 3 ML PEN SC SCH (18:00)
[2019-01-20] MEDS ORDERED: INSULIN GLARGINE [LANTus] (100 UNITS/ML) SYG SC SCH (20:00)
[2019-01-20] MEDS: LEVOFLOXACIN 500MG/D5W (PMX) 100 ML IVPB SCH (22:55)
[2019-01-21] MEDS: ACCU-CHEK XX SCH (02:09)
[2019-01-21 02:54] VITALS: BP 167/85; PULSE 88; RESP 16
[2019-01-21] MEDS: hydrALAzine 20 MG INJ IV PRN (02:59)
[2019-01-21 03:28] VITALS: BP 153/71; PULSE 90
--- NOTE | 2019-01-21 07:12 | PN ---
Date/Time of Note Date/Time of Note DATE: 01/21/19 TIME: 07:11 Assessment/Plan VTE Prophylaxis Risk score (from Nsg)>0 risk: 1 SCD applied (from Nsg): Yes Pharmacological prophylaxis: NA/contraindicated Pharm contraindication: low risk/ambulating Lines/Catheters IV Catheter Type (from Nrsg): [place] Assessment/Plan Hospital Course SUBJECTIVE: Denies any pain. Blood sugars running high. OBJECTIVE: Physical Exam General: Adequately build 58 year-old female lying in bed in no apparent distress. HEENT: Normocephalic, atraumatic. Eyes: Anicteric sclerae, conjunctivae clear. ENT: Nasal septum is midline, oral mucosa moist. Neck supple, no JVD noticed. Respiratory: Bilaterally clear breath sounds. No use of accessory muscles of respiration. No adventitious breath sounds. Cardiovascular: S1, S2 heard. Regular rate and rhythm. Abdomen: Soft, nontender, and nondistended. Bowel sounds positive in all 4 quadrants. Genitourinary: Deferred. Extremities: No cyanosis, no clubbing, no edema. Peripheral pulses palpable. Neurologic: Cranial nerves II through XII grossly intact. The patient is awake, alert, and oriented. Skin: Normal skin turgor. No skin rashes. Labs & Vitals per chart ASSESSMENT & PLAN 58-year-old female who is homeless with comorbidities including diabetes mellitus, hypertension, bipolar disorder,and depression who came to the emergency room with multiple complaints including nausea, vomiting, dizziness, and chills with evidence of hyperglycemia (blood glucose 531) with no evidence of DKA, who was admitted to inpatient setting for further treatment and evaluation. 1. Hyperglycemia secondary to underlying uncontrolled diabetes mellitus. -Hemoglobin A1c more than 14. -Continue sliding scale insulin along with pre-meal insulin basal insulin. -Nausea and vomiting probably secondary to underlying hyperglycemia. 2. Hypertension. -Continue antihypertensives. 3. E. coli ESBL urinary tract infection. -Continue ABX as per ID. 4. Homeless status. -Social work consult. 5. Mood disorder. -Pending psych evaluation. 6. Fluids, electrolytes, and nutrition. Carbohydrate controlled diet. 7.-DVT prophylaxis -Bilateral SCDs. 8. Plan. -Continue blood pressure control. -Continue appropriate blood sugar control. -Await clinical improvement. The patient was seen in collaboration with Dr. Rooney. Result Diagram: 01/20/19 0451 01/20/19 0451 Results 24hrs Laboratory Tests Test 01/20/19 08:19 01/20/19 12:26 01/20/19 17:26 01/20/19 20:15 Bedside Glucose 221 H 253 H 292 H 292 H Test 01/21/19 02:06 Bedside Glucose 296 H Exam/Review of Systems Exam Vitals Vital Signs Date Temp Pulse Resp B/P (MAP) Pulse Ox O2 O2 Flow FiO2 Time Delivery Rate 01/21/19 90 153/71 03:28 (98) 01/21/19 98.7 16 95 02:54 01/18/19 Room Air 21:25 Intake and Output 01/20/19 01/20/19 01/21/19 1515:00 23:00 07:00 IntakeIntake Total 960 ml 1000 ml 100 ml BalanceBalance 960 ml 1000 ml 100 ml Results Results 24hrs Laboratory Tests Test 01/20/19 08:19 01/20/19 12:26 01/20/19 17:26 01/20/19 20:15 Bedside Glucose 221 H 253 H 292 H 292 H Test 01/21/19 02:06 Bedside Glucose 296 H Medications Medication Current Medications IV Flush (NS 3 ml) 3 ml PER PROTOCOL IV ; Start 01/17/19 at 14:30 Ondansetron HCl (Zofran Inj) 4 mg Q6H PRN IV NAUSEA/VOMITING; Start 01/17/19 at 14:30 Acetaminophen (Tylenol Tab) 650 mg Q6H PRN PO .PAIN 1-3 OR TEMP Last administered on 01/19/19at 19:46; Admin Dose 650 MG; Start 01/17/19 at 14:30 Acetaminophen/ Hydrocodone Bitart ([place] (5/325)) 1 tab Q6H PRN PO .PAIN 4-6 Last administered on 01/21/19 04:21; Admin Dose 1 TAB; Start 01/17/19 at 14:30 Diagnostic Test (Pha) (Accu-Chek) 1 ea 02 XX Last administered on 01/21/19at 02:09; Admin Dose 1 EA; Start 01/18/19 at 02:00 Insulin Aspart (Novolog Insulin Pen) NOVOLOG *MILD* ALGORITHM WITH MEALS BEDTIME SC Last administered on 01/20/19at 20:22; Admin Dose 3 UNIT; Start 01/17/19 at 18:00 Sucralfate (Carafate Susp) 1 gm QID PO Last administered on 01/20/19at 20:13; Admin Dose 1 GM; Start 01/17/19 at 17:00 Hydralazine HCl (Apresoline) 10 mg Q4H PRN IV sbp >160 Last administered on 01/21/19at 02:59; Admin Dose 10 MG; Start 01/17/19 at 15:00 Labetalol HCl (Labetalol) 10 mg Q4 PRN IV sbp>160; Start 01/17/19 at 15:00 Miscellaneous Information 1 ea NOTE XX ; Start 01/17/19 at 17:00 Glucose (Glutose) 15 gm Q15M PRN PO DECREASED GLUCOSE; Start 01/17/19 at 17:00 Glucose (Glutose) 22.5 gm Q15M PRN PO DECREASED GLUCOSE; Start 01/17/19 at 17:00 Dextrose (D50w Syringe) 25 ml Q15M PRN IV DECREASED GLUCOSE; Start 01/17/19 at 17:00 Dextrose (D50w Syringe) 50 ml Q15M PRN IV DECREASED GLUCOSE; Start 01/17/19 at 17:00 Glucagon (Glucagen) 1 mg Q15M PRN IM DECREASED GLUCOSE; Start 01/17/19 at 17:00 Glucose (Glutose) 15 gm Q15M PRN BUCCAL DECREASED GLUCOSE; Start 01/17/19 at 17:00 Lisinopril (Zestril) 5 mg DAILY PO Last administered on 01/20/19at 08:16; Admin Dose 5 MG; Start 01/18/19 at 11:00 Levofloxacin/ Dextrose 100 ml @ 100 mls/hr Q24H IVPB Last administered on 01/20/19at 22:55; Admin Dose 100 MLS/HR; Start 01/19/19 at 22:00; Stop 01/30/19 at 15:30 Famotidine (Pepcid) 20 mg BID PO Last administered on 01/20/19at 20:13; Admin Dose 20 MG; Start 01/20/19 at 09:00 Insulin Aspart (Novolog Insulin Pen) 5 unit WITH MEALS SC ; Start 01/21/19 at 08:00 Insulin Glargine (Lantus) 16 units DAILY@2000 SC ; Start 01/21/19 at 20:00 NURIA ROMERO NP January 21, 2019 07:12
[2019-01-21 08:00] VITALS: BP 156/79; PULSE 89; RESP 18
[2019-01-21] MEDS: SUCRALFATE (100 MG/ML) 10ML CUP PO SCH ×4 (08:40→20:34)
[2019-01-21] MEDS: LISINOPRIL 5 MG TAB PO SCH (08:42)
[2019-01-21] MEDS: FAMOTIDINE 20 MG TAB PO SCH ×2 (08:42→20:34)
[2019-01-21] MEDS: INSULIN ASPART [NOVOLOG] 3 ML PEN SC SCH ×7 (08:43→20:46)
--- NOTE | 2019-01-21 13:47 | CONS ---
Assessment/Plan Assessment/Plan Hospital Course (Demo Recall) Alert looks comfortable denies pain no nausea vomiting diarrhea no hematuria WBC 6.8 neutrophils 54.9 BUN 17 creatinine 0.52 Urine culture on admission grew E. coli ESBL susceptible to majority of the antibiotics Antimicrobials: Levofloxacin Physical examination well-developed well-nourished middle-aged woman who is alert in no distress. Head atraumatic normocephalic neck is supple chest rise symmetrical breath sounds diminished bases heart S1-S2 abdomen soft bowel sounds present Assessment: 1. Urinary tract infection 2. Diabetes 3. Hypertension 4. Bipolar disorder 5. Homelessness Plan: Patient remains stable, she is improving with oral Levaquin. Anticipate to complete total of 7 days Consultation Date/Type/Reason Admit Date/Time January 17, 2019 at 14:25 Initial Consult Date Reason for Consultation id Date/Time of Note DATE: 01/21/19 TIME: 13:47 Exam/Review of Systems Exam Vitals Vital Signs Date Temp Pulse Resp B/P (MAP) Pulse Ox O2 O2 Flow FiO2 Time Delivery Rate 01/21/19 98.8 89 18 156/79 95 08:00 (104) 01/18/19 Room Air 21:25 Intake and Output 01/20/19 01/20/19 01/21/19 1515:00 23:00 07:00 IntakeIntake Total 960 ml 1000 ml 100 ml BalanceBalance 960 ml 1000 ml 100 ml Results Result Diagram: 01/21/19 0705 01/21/19 0705 Results 24hrs Laboratory Tests Test 01/20/19 17:26 01/20/19 20:15 01/21/19 02:06 01/21/19 07:05 Bedside Glucose 292 H 292 H 296 H White Blood Count 6.8 # Red Blood Count 5.35 Hemoglobin 13.9 Hematocrit 42.5 Mean Corpuscular 79.4 L Volume Mean Corpuscular 26.0 L Hemoglobin Mean Corpuscular 32.7 Hemoglobin Concent Red Cell 12.1 Distribution Width Platelet Count 161 Mean Platelet 12.6 H Volume Immature 0.900 H Granulocytes % Neutrophils % 54.9 Lymphocytes % 33.9 Monocytes % 8.8 Eosinophils % 0.9 Basophils % 0.6 Nucleated Red 0.0 Blood Cells % Immature 0.060 H Granulocytes # Neutrophils # 3.7 Lymphocytes # 2.3 Monocytes # 0.6 Eosinophils # 0.1 Basophils # 0.0 Nucleated Red 0.0 Blood Cells # Sodium Level 134 L Potassium Level 4.1 Chloride Level 100 Carbon Dioxide 28 Level Anion Gap 6 Blood Urea 17 Nitrogen Creatinine 0.52 Est Glomerular > 60 Filtrat Rate mL/min Glucose Level 328 H Calcium Level 8.9 Phosphorus Level 3.5 Magnesium Level 1.9 Test 01/21/19 08:35 01/21/19 10:05 01/21/19 12:40 Bedside Glucose 295 H 331 H Lab Scanned Report REFERENCE LAB Medications Medication Current Medications IV Flush (NS 3 ml) 3 ml PER PROTOCOL IV ; Start 01/17/19 at 14:30 Ondansetron HCl (Zofran Inj) 4 mg Q6H PRN IV NAUSEA/VOMITING; Start 01/17/19 at 14:30 Acetaminophen (Tylenol Tab) 650 mg Q6H PRN PO .PAIN 1-3 OR TEMP Last administered on 01/19/19at 19:46; Admin Dose 650 MG; Start 01/17/19 at 14:30 Acetaminophen/ Hydrocodone Bitart ([place] (5/325)) 1 tab Q6H PRN PO .PAIN 4-6 Last administered on 01/21/19at 04:21; Admin Dose 1 TAB; Start 01/17/19 at 14:30 Diagnostic Test (Pha) (Accu-Chek) 1 ea 02 XX Last administered on 01/21/19at 02:09; Admin Dose 1 EA; Start 01/18/19 at 02:00 Insulin Aspart (Novolog Insulin Pen) NOVOLOG *MILD* ALGORITHM WITH MEALS BEDTIME SC Last administered on 01/21/19at 12:50; Admin Dose 5 UNIT; Start 01/17/19 at 18:00 Sucralfate (Carafate Susp) 1 gm QID PO Last administered on 01/21/19at 12:42; Admin Dose 1 GM; Start 01/17/19 at 17:00 Hydralazine HCl (Apresoline) 10 mg Q4H PRN IV sbp >160 Last administered on 01/21/19at 02:59; Admin Dose 10 MG; Start 01/17/19 at 15:00 Labetalol HCl (Labetalol) 10 mg Q4 PRN IV sbp>160; Start 01/17/19 at 15:00 Miscellaneous Information 1 ea NOTE XX ; Start 01/17/19 at 17:00 Glucose (Glutose) 15 gm Q15M PRN PO DECREASED GLUCOSE; Start 01/17/19 at 17:00 Glucose (Glutose) 22.5 gm Q15M PRN PO DECREASED GLUCOSE; Start 01/17/19 at 17:00 Dextrose (D50w Syringe) 25 ml Q15M PRN IV DECREASED GLUCOSE; Start 01/17/19 at 17:00 Dextrose (D50w Syringe) 50 ml Q15M PRN IV DECREASED GLUCOSE; Start 01/17/19 at 17:00 Glucagon (Glucagen) 1 mg Q15M PRN IM DECREASED GLUCOSE; Start 01/17/19 at 17:00 Glucose (Glutose) 15 gm Q15M PRN BUCCAL DECREASED GLUCOSE; Start 01/17/19 at 17:00 Lisinopril (Zestril) 5 mg DAILY PO Last administered on 01/21/19at 08:42; Admin Dose 5 MG; Start 01/18/19 at 11:00 Levofloxacin/ Dextrose 100 ml @ 100 mls/hr Q24H IVPB Last administered on 01/20/19at 22:55; Admin Dose 100 MLS/HR; Start 01/19/19 at 22:00; Stop 01/30/19 at 15:30 Famotidine (Pepcid) 20 mg BID PO Last administered on 01/21/19at 08:42; Admin Dose 20 MG; Start 01/20/19 at 09:00 Insulin Aspart (Novolog Insulin Pen) 5 unit WITH MEALS SC Last administered on 01/21/19at 12:50; Admin Dose 5 UNIT; Start 01/21/19 at 08:00 Insulin Glargine (Lantus) 16 units DAILY@2000 SC ; Start 01/21/19 at 20:00 NGUYEN YORK NP January 21, 2019 13:47
[2019-01-21 14:00] VITALS: BP 143/71; PULSE 98; RESP 18
[2019-01-21] MEDS: LEVOFLOXACIN 500 MG TAB PO SCH (17:38)
--- NOTE | 2019-01-21 17:41 | PSY ---
Date/Time of Note Date/Time of Note DATE: 01/21/19 TIME: 17:33 Psychiatric Subjective Eval Consent Pt consented to telemedicine: No Subjective Evaluation Patient location: inpatient Chief Complaint: pt is bib family with c/o vomiting , abd pain and feeling weak x 1 wk History of present illness Patient is a 58year old female underlying medical history diabetes mellitus, hypertension who is currently admitted to the [facility] units for nausea, and vomiting. Face evaluation patient admits long history of mental illness, states she has been increasingly depressed and anxious for a long time but has b een off medication because she lives in a alf and has not been able to afford refills and has also not been able to follow-up with her treatments. Explained risk and benefits of BuSpar and Lexapro and she verbalized understanding Hospitalization: other Medical history Problems Medical Problems: (1) Acute hyperglycemia Status: Acute (2) Acute UTI Status: Acute (3) Dehydration Status: Acute (4) Sacral contusion Status: Acute (5) Vomiting Status: Acute Allergies: Coded Allergies: No Known Allergy (Unverified , 01/17/19) Substance Abuse Substance use: other Substance abuse history: No Prior substance abuse treatmen: No Social History Marital status: other DPA/Conservatorship: No Psychiatric Objective Eval Review of Systems: Review of Systems: Not Applicable Physical Examination: Physical Examination: Applicable Sleep: Insomnia, Adequate, Other Appetite: Adequate Energy: Adequate Interest: Adequate Mental Status Examination: Appearance: Poor Hygiene Eye Contact: Good Psychomotor Activity: Slow Behavior: Cooperative AFFECT: Flat Mood: Depressed, Anxious Orientation: x4 Cognition: Alert Insight: Mild Judgement: Mild Laboratory Results Laboratory Tests Test 01/19/19 17:53 01/19/19 20:43 01/20/19 02:32 01/20/19 04:51 Bedside Glucose 211 mg/dL 309 mg/dL 265 mg/dL White Blood 5.4 10^3/ul Count Red Blood Count 5.19 10^6/ul Hemoglobin 13.2 g/dl Hematocrit 41.6 % Mean Corpuscular 80.2 fl Volume Mean Corpuscular 25.4 pg Hemoglobin Mean Corpuscular 31.7 g/dl Hemoglobin Mirtha nt Red Cell 11.9 % Distribution Width Platelet Count 153 10^3/UL Mean Platelet 11.9 fl Volume Immature 1.100 % Granulocytes % Neutrophils % 46.0 % Lymphocytes % 41.0 % Monocytes % 9.3 % Eosinophils % 1.7 % Basophils % 0.9 % Nucleated Red 0.0 /100WBC Blood Cells % Immature 0.060 10^3/ul Granulocytes # Neutrophils # 2.5 10^3/ul Lymphocytes # 2.2 10^3/ul Monocytes # 0.5 10^3/ul Eosinophils # 0.1 10^3/ul Basophils # 0.1 10^3/ul Nucleated Red 0.0 10^3/ul Blood Cells # Sodium Level 136 mmol/L Potassium Level 3.9 mmol/L Chloride Level 104 mmol/L Carbon Dioxide 26 mmol/L Level Anion Gap 6 Blood Urea 16 mg/dl Nitrogen Creatinine 0.55 mg/dl Est Glomerular > 60 mL/min Filtrat Rate mL/min Glucose Level 246 mg/dl Calcium Level 8.7 mg/dl Phosphorus Level 3.3 mg/dl Magnesium Level 1.8 mg/dl Test 01/20/19 08:19 01/20/19 12:26 01/20/19 17:26 01/20/19 20:15 Bedside Glucose 221 mg/dL 253 mg/dL 292 mg/dL 292 mg/dL Test 01/21/19 02:06 01/21/19 07:05 01/21/19 08:35 01/21/19 10:05 Bedside Glucose 296 mg/dL 295 mg/dL White Blood 6.8 10^3/ul Count Red Blood Count 5.35 10^6/ul Hemoglobin 13.9 g/dl Hematocrit 42.5 % Mean Corpuscular 79.4 fl Volume Mean Corpuscular 26.0 pg Hemoglobin Mean Corpuscular 32.7 g/dl Hemoglobin Mirtha nt Red Cell 12.1 % Distribution Width Platelet Count 161 10^3/UL Mean Platelet 12.6 fl Volume Immature 0.900 % Granulocytes % Neutrophils % 54.9 % Lymphocytes % 33.9 % Monocytes % 8.8 % Eosinophils % 0.9 % Basophils % 0.6 % Nucleated Red 0.0 /100WBC Blood Cells % Immature 0.060 10^3/ul Granulocytes # Neutrophils # 3.7 10^3/ul Lymphocytes # 2.3 10^3/ul Monocytes # 0.6 10^3/ul Eosinophils # 0.1 10^3/ul Basophils # 0.0 10^3/ul Nucleated Red 0.0 10^3/ul Blood Cells # Sodium Level 134 mmol/L Potassium Level 4.1 mmol/L Chloride Level 100 mmol/L Carbon Dioxide 28 mmol/L Level Anion Gap 6 Blood Urea 17 mg/dl Nitrogen Creatinine 0.52 mg/dl Est Glomerular > 60 mL/min Filtrat Rate mL/min Glucose Level 328 mg/dl Calcium Level 8.9 mg/dl Phosphorus Level 3.5 mg/dl Magnesium Level 1.9 mg/dl Lab Scanned REFERENCE Report LAB [id number] Test 01/21/19 12:40 01/21/19 17:09 Bedside Glucose 331 mg/dL 332 mg/dL Assessment and Plan Assessment/Diagnosis Diagnosis Major depressive disorder severe recurrent without psychosis Recommendation/Plan Medication Management Lexapro 5 mg daily, and BuSpar 5 mg of twice a day Multiple antipsychotics: No Psychotherapy Advised supportive therapy Discharge Disposition: Other Legal Status: Voluntary ARABELLA CALVERT NP January 21, 2019 17:41
[2019-01-21] MEDS ORDERED: INSULIN GLARGINE [LANTus] (100 UNITS/ML) SYG SC SCH ×2 (20:00)
[2019-01-21] MEDS: BUSPIRONE 5 MG TAB PO SCH (20:34)
[2019-01-21 20:38] VITALS: BP 137/74; PULSE 93; RESP 18
[2019-01-21] MEDS ORDERED: INSULIN ASPART [NOVOLOG] 3 ML PEN SC ONE (21:00)
[2019-01-21] MEDS ORDERED: ACCU-CHEK XX ONE (23:00)
[2019-01-22] MEDS: ACCU-CHEK XX SCH (02:00)
[2019-01-22 02:19] VITALS: BP 163/93; PULSE 92; RESP 18
[2019-01-22 04:30] VITALS: BP 145/65
[2019-01-22] MEDS: LEVOFLOXACIN 500 MG TAB PO SCH (05:26)
[2019-01-22 07:29] VITALS: BP 184/88; PULSE 94; RESP 18
--- NOTE | 2019-01-22 07:48 | PN ---
Date/Time of Note Date/Time of Note Assessment/Plan VTE Prophylaxis Risk score (from Ns)>0 risk: 1 Assessment/Plan Result Diagram: 01/22/19 0649 01/22/19 0648 Results 24hrs Laboratory Tests Test 01/21/19 08:35 01/21/19 10:05 01/21/19 12:40 01/21/19 17:09 Bedside Glucose 295 H 331 H 332 H Lab Scanned Report REFERENCE LAB Test 01/21/19 20:29 01/21/19 22:48 01/22/19 06:48 01/22/19 06:49 Bedside Glucose 337 H 290 H Sodium Level 135 Potassium Level 4.2 Chloride Level 103 Carbon Dioxide 27 Level Anion Gap 5 Blood Urea 19 Nitrogen Creatinine 0.51 Est Glomerular > 60 Filtrat Rate mL/min Glucose Level 267 H Calcium Level 8.4 White Blood Count 7.4 Red Blood Count 4.95 Hemoglobin 12.7 Hematocrit 39.6 Mean Corpuscular 80.0 L Volume Mean Corpuscular 25.7 L Hemoglobin Mean Corpuscular 32.1 Hemoglobin Concent Red Cell 12.1 Distribution Width Platelet Count 161 Mean Platelet 12.2 H Volume Immature 1.200 H Granulocytes % Neutrophils % 56.1 Lymphocytes % 31.4 Monocytes % 9.8 Eosinophils % 0.8 Basophils % 0.7 Nucleated Red 0.0 Blood Cells % Immature 0.090 H Granulocytes # Neutrophils # 4.1 Lymphocytes # 2.3 Monocytes # 0.7 Eosinophils # 0.1 Basophils # 0.1 Nucleated Red 0.0 Blood Cells # Phosphorus Level 3.6 Magnesium Level 1.8 Exam/Review of Systems Exam Vitals Results Results 24hrs Medications Medication NURIA ROMERO NP January 22, 2019 07:48
[2019-01-22 08:12] VITALS: BP 164/87; PULSE 86; RESP 16
[2019-01-22] MEDS: INSULIN ASPART [NOVOLOG] 3 ML PEN SC SCH ×6 (08:20→17:08)
[2019-01-22] MEDS: SUCRALFATE (100 MG/ML) 10ML CUP PO SCH ×3 (08:21→17:08)
[2019-01-22] MEDS: BUSPIRONE 5 MG TAB PO SCH (08:22)
[2019-01-22] MEDS: FAMOTIDINE 20 MG TAB PO SCH (08:22)
[2019-01-22] MEDS: REPAGLINIDE 1 MG TAB PO SCH ×3 (08:23→17:08)
[2019-01-22] MEDS ORDERED: LISINOPRIL 5 MG TAB PO SCH (09:00)
[2019-01-22] MEDS ORDERED: ESCITALOPRAM 10 MG TAB PO SCH (09:00)
--- NOTE | 2019-01-22 09:10 | RADRPT ---
Vent Rate: 112 bpm RR Interval: 536 msec NM Interval: 158 msec QRS Duration: 73 msec QT Interval: 331 msec QTC Interval: 452 msec P-R-T [place]: 58 - -77 - 64 degrees Sinus tachycardia...rate> 99 Inferior infarct, old...Q >35mS, II III aVF Consider anterior infarct...Q >30mS in V2-V5 Electronically Signed By: Deandre Ballesteros
--- NOTE | 2019-01-22 12:35 | CONS ---
Assessment/Plan Assessment/Plan Hospital Course (Demo Recall) All noted no acute events overnight, no fevers Urine culture on admission grew E. coli ESBL susceptible to majority of the antibiotics Antimicrobials: Levofloxacin Physical examination well-developed well-nourished middle-aged woman who is alert in no distress. Head atraumatic normocephalic neck is supple chest rise symmetrical breath sounds diminished bases heart S1-S2 abdomen soft bowel sounds present Assessment: 1. Urinary tract infection 2. Diabetes 3. Hypertension 4. Bipolar disorder 5. Homelessness Plan: Patient remains stable, complete abx for total of 7 days Consultation Date/Type/Reason Admit Date/Time January 17, 2019 at 14:25 Initial Consult Date Type of Consult id Date/Time of Note DATE: 01/22/19 TIME: 12:34 Exam/Review of Systems Exam Vitals Vital Signs Date Temp Pulse Resp B/P (MAP) Pulse Ox O2 O2 Flow FiO2 Time Delivery Rate 01/22/19 86 16 164/87 08:12 (112) 01/22/19 98.5 95 Room Air 07:29 Intake and Output 01/21/19 01/21/19 01/22/19 1515:00 23:00 07:00 IntakeIntake Total 640 ml 320 ml BalanceBalance 640 ml 320 ml Results Result Diagram: 01/22/19 0649 01/22/19 0648 Results 24hrs Laboratory Tests Test 01/21/19 12:40 01/21/19 17:09 01/21/19 20:29 01/21/19 22:48 Bedside Glucose 331 H 332 H 337 H 290 H Test 01/22/19 06:48 01/22/19 06:49 01/22/19 08:10 Sodium Level 135 Potassium Level 4.2 Chloride Level 103 Carbon Dioxide Level 27 Anion Gap 5 Blood Urea Nitrogen 19 Creatinine 0.51 Est Glomerular > 60 Filtrat Rate mL/min Glucose Level 267 H Hemoglobin A1c > 14.0 H Calcium Level 8.4 White Blood Count 7.4 Red Blood Count 4.95 Hemoglobin 12.7 Hematocrit 39.6 Mean Corpuscular 80.0 L Volume Mean Corpuscular 25.7 L Hemoglobin Mean Corpuscular 32.1 Hemoglobin Concent Red Cell 12.1 Distribution Width Platelet Count 161 Mean Platelet Volume 12.2 H Immature 1.200 H Granulocytes % Neutrophils % 56.1 Lymphocytes % 31.4 Monocytes % 9.8 Eosinophils % 0.8 Basophils % 0.7 Nucleated Red Blood 0.0 Cells % Immature 0.090 H Granulocytes # Neutrophils # 4.1 Lymphocytes # 2.3 Monocytes # 0.7 Eosinophils # 0.1 Basophils # 0.1 Nucleated Red Blood 0.0 Cells # Phosphorus Level 3.6 Magnesium Level 1.8 Bedside Glucose 244 H Medications Medication Current Medications IV Flush (NS 3 ml) 3 ml PER PROTOCOL IV ; Start 01/17/19 at 14:30 Ondansetron HCl (Zofran Inj) 4 mg Q6H PRN IV NAUSEA/VOMITING; Start 01/17/19 at 14:30 Acetaminophen (Tylenol Tab) 650 mg Q6H PRN PO .PAIN 1-3 OR TEMP Last administered on 01/19/19 19:46; Admin Dose 650 MG; Start 01/17/19 at 14:30 Acetaminophen/ Hydrocodone Bitart ([place] (5/325)) 1 tab Q6H PRN PO .PAIN 4-6 Last administered on 01/21/19at 04:21; Admin Dose 1 TAB; Start 01/17/19 at 14:30 Diagnostic Test (Pha) (Accu-Chek) 1 ea 02 XX Last administered on 01/21/19at 02:09; Admin Dose 1 EA; Start 01/18/19 at 02:00 Insulin Aspart (Novolog Insulin Pen) NOVOLOG *MILD* ALGORITHM WITH MEALS BEDTIME SC Last administered on 01/22/19 08:20; Admin Dose 3 UNIT; Start 01/17/19 at 18:00 Sucralfate (Carafate Susp) 1 gm QID PO Last administered on 01/22/19 08:21; Admin Dose 1 GM; Start 01/17/19 at 17:00 Hydralazine HCl (Apresoline) 10 mg Q4H PRN IV sbp >160 Last administered on 01/21/19 02:59; Admin Dose 10 MG; Start 01/17/19 at 15:00 Labetalol HCl (Labetalol) 10 mg Q4 PRN IV sbp>160; Start 01/17/19 at 15:00 Miscellaneous Information 1 ea NOTE XX ; Start 01/17/19 at 17:00 Glucose (Glutose) 15 gm Q15M PRN PO DECREASED GLUCOSE; Start 01/17/19 at 17:00 Glucose (Glutose) 22.5 gm Q15M PRN PO DECREASED GLUCOSE; Start 01/17/19 at 17:00 Dextrose (D50w Syringe) 25 ml Q15M PRN IV DECREASED GLUCOSE; Start 01/17/19 at 17:00 Dextrose (D50w Syringe) 50 ml Q15M PRN IV DECREASED GLUCOSE; Start 01/17/19 at 17:00 Glucagon (Glucagen) 1 mg Q15M PRN IM DECREASED GLUCOSE; Start 01/17/19 at 17:00 Glucose (Glutose) 15 gm Q15M PRN BUCCAL DECREASED GLUCOSE; Start 01/17/19 at 17:00 Famotidine (Pepcid) 20 mg BID PO Last administered on 01/22/19 08:22; Admin Dose 20 MG; Start 01/20/19 at 09:00 Insulin Aspart (Novolog Insulin Pen) 7 unit WITH MEALS SC Last administered on 01/22/19 08:21; Admin Dose 7 UNIT; Start 01/21/19 at 18:00 Insulin Glargine (Lantus) 18 units DAILY@2000 SC Last administered on 01/21/19at 20:44; Admin Dose 18 UNITS; Start 01/21/19 at 20:00 Levofloxacin (Levaquin) 500 mg DAILY@06 PO Last administered on 01/22/19 05:26; Admin Dose 500 MG; Start 01/21/19 at 16:00; Stop 01/30/19 at 15:59 Buspirone HCl (Buspar) 5 mg BID PO Last administered on 01/22/19 08:22; Admin Dose 5 MG; Start 01/21/19 at 21:00 Escitalopram Oxalate (Lexapro) 5 mg DAILY PO Last administered on 01/22/19 08:22; Admin Dose 5 MG; Start 01/22/19 at 09:00 Lisinopril (Zestril) 10 mg DAILY PO Last administered on 01/22/19 08:22; Admin Dose 10 MG; Start 01/22/19 at 09:00 Repaglinide (Prandin) 1 mg AC MEALS PO Last administered on 01/22/19 08:23; Admin Dose 1 MG; Start 01/22/19 at 07:00 NGUYEN YOKR NP January 22, 2019 12:35
[2019-01-22] MEDS: hydrALAzine 20 MG INJ IV PRN (12:39)
[2019-01-22 14:00] VITALS: BP 145/74; PULSE 94; RESP 18
[2019-01-22] MEDS ORDERED: LISI-313 PO (15:12)
[2019-01-22] MEDS ORDERED: INSU100I33 SC (15:12)
[2019-01-22] MEDS ORDERED: METF-849 PO (15:12)
[2019-01-22] MEDS ORDERED: LEVO500T48 PO (15:12)
[2019-01-22] MEDS ORDERED: ESCI10TA48 PO (15:12)
[2019-01-22] MEDS ORDERED: BUSP5TAB2 PO (15:12)
[2019-01-22] MEDS ORDERED: GLIP5TAB13 PO (15:12)
--- NOTE | 2019-01-22 15:17 | PDOCDIS ---
Discharge Instructions CONDITION [id number] Patient Condition: [id number] Stable HOME CARE INSTRUCTIONS: [id number] Special Diet: [id number] Low carbohydrate FOLLOW UP/APPOINTMENTS Follow-up Plan Alex Cruz MD Specialty: Internal Medicine Office Address: [address] [place], [place] [id number] Office OTHER ORDERS: Other Orders: 1. Take medications as per prescription. 2. Complete the course of antibiotics. 3. Take a low carbohydrate diet. 4. Resume activities as tolerated. 5. Please follow-up with your primary care physician in 1 week. If you do not have a primary care physician please call Dr. Alex Cruz's office. 6. Please go to the nearest emergency room if you have persistent fevers, persistent nausea/vomiting, or any other unusual signs/symptoms. NURIA ROMERO NP January 22, 2019 15:17
--- NOTE | 2019-01-22 17:56 | DS ---
Date/Time of Note Date/Time of Note DATE: 01/22/19 TIME: 17:55 Discharge Summary Admission/Discharge Info Admit Date/Time January 17, 2019 at 14:25 Discharge Date/Time January 22, 2019 at 17:25 Discharge Diagnosis 1. DM type 2. Hemoglobin A1c more than 14. 2. Hypertension. 3. E. coli ESBL urinary tract infection. 4. Homeless status. 5. Major depressive disorder. Patient Condition: Stable Consults 1. Ad Underwood MD, Infectious Diseases. 2. Megan Stevenson NP, Psychiatry. Procedures CXR IMPRESSION: No radiographic evidence of an acute cardiopulmonary process. Mild bibasilar atelectasis. Hx of Present Illness This is a 58-year-old female who is homeless with comorbidities including diabetes mellitus, hypertension, bipolar disorder,and depression who came to the emergency room with multiple complaints including nausea, vomiting, dizziness, and chills with evidence of hyperglycemia (blood glucose 531) with no evidence of DKA, who was admitted to inpatient setting for further treatment and evaluation. Hospital Course The patient had underlying hyperglycemia secondary to uncontrolled diabetes mellitus. The patient did not have any evidence of any diabetic ketoacidosis. The patient was started on sliding scale insulin along with pre-meal insulin and basal insulin. The patient's insulin dosing was adjusted to obtain optimal blood sugar control. Later, the patient was also started on oral agents for appropriate blood sugar control. The patient's symptomatology of her nausea, vomiting, dizziness, and chills could have been contributed by underlying hyperglycemia and also she had underlying urinary tract infection. The patient's urine culture was positive for E. coli ESBL with a colony count more than 100,000 CFU per mL. ID consult was obtained for expert opinion. The patient was maintained on appropriate antimicrobials as per ID. The patient was noticed to have underlying hypertension. The patient was started on GISELLE inhibitors. The patient's antihypertensives were titrated up to obtain optimal blood pressure control. The patient also has history of mood disorder. Therefore, the patient was evaluated by psychiatry and the patient was started on antidepressants and anxiolytics. The patient is homeless and she resides in a homeless long-term. The patient was evaluated by public health social worker and confirmed safe disposal upon discharge. The patient responded well to the treatment strategy. The patient is stable to be discharged, to be followed up with outpatient service order taker. The patient was given prescription for insulin, supplies including lancets, test strips, insulin needles, and insulin pen. The patient was also evaluated by the clinical unit educator during this hospitalization. Discharge Instructions 1. Take medications as per prescription. 2. Complete the course of antibiotics. 3. Take a low carbohydrate diet. 4. Resume activities as tolerated. 5. Please follow-up with your primary care physician in 1 week. If you do not have a primary care physician please call Dr. Alex Cruz's office. 6. Please go to the nearest emergency room if you have persistent fevers, persistent nausea/vomiting, or any other unusual signs/symptoms. The patient verbalized understanding of her discharge instructions. At this time I would like to thank all the consultants for seeing the patient and providing clinical recommendations. The patient was seen in collaboration with Dr. Rooney. Home Meds Active Scripts Insulin Glargine,Hum.rec.anlog (Basaglar Kwikpen U-100) 100 Unit/1 Ml Insuln.pen, 20 UNIT SC QHS, #1 EA Prov:NURIA ROMERO NP 01/22/19 Glipizide* (Glipizide*) 5 Mg Tablet, 5 MG PO AC BREAKFAST DINNER for 30 Days, #30 TAB Prov:NURIA ROMERO NP 01/22/19 Metformin* (Glucophage*) 500 Mg Tab, 500 MG PO BID WITH MEALS, #60 TAB Prov:NURIA ROMERO NP 01/22/19 Buspirone Hcl* (Buspirone Hcl*) 5 Mg Tab, 5 MG PO BID, #60 TAB Prov:NURIA ROMERO NP 01/22/19 Levofloxacin* (Levaquin*) 500 Mg Tablet, 500 MG PO DAILY@06, #5 TAB Prov:NURIA ROMERO NP 01/22/19 Lisinopril* (Lisinopril*) 5 Mg Tablet, 10 MG PO DAILY, #60 TAB 2 tabs (10 mg) PO daily Prov:NURIA ROMERO NP 01/22/19 Escitalopram Oxalate* (Escitalopram Oxalate*) 10 Mg Tablet, 5 MG PO DAILY, #30 T AB Prov:NURIA ROMERO NP 01/22/19 Discontinued Scripts Ondansetron Hcl* (Zofran*) 4 Mg Tablet, 4 MG PO Q8H PRN for NAUSEA AND/OR VOMITING, #30 TAB Prov:SHAKILA MICHELLE MD 01/17/19 Cephalexin* (Keflex*) 500 Mg Capsule, 500 MG PO QID for 5 Days, CAP Prov:SHAKILA MICHELLE MD 01/17/19 Follow-up Plan Alex Cruz MD Specialty: Internal Medicine Office Address: [address] [facility] [address] [place] [id number] Office Primary Care Provider Care Physician No Primary Time spent on discharge: > 30 minutes Pending Labs RUN DATE: 01/19/19 [facility] PAGE 1 RUN TIME: [id number] [address] [place] [address] Barry Hogan M.D. Fig [employer] Karel Lorenz M.D. Co-[employer] KENAN#: [id number] Name: LORENE ZRUITA Age/Sex: 58/F Attend Dr: SHAKILA LE Acct: [id number] MR# : [id number] : 1960 Location: [facility] 2284-A Admit: 01/17/19 Specimen: [id number] Status: Complete Keira: 01/17/19-0 Rcvd: 01/17/190 Source: MIMI CONNELLY Sp Descrip: Procedure Result Microbiology URINE CULTURE Final Organism 1 ESCHERICHIA COLI (ESBL) COLONY COUNT >100,000 CFU/ml . MULTI DRUG RESISTANT ORGANISM PHONED TO ELINOR IBARRA, AT 0932, SHABANA WILBURN, [facility] AT 1144, 01/19/19, HN. ECOLI ESBL ECOLI ESBL M.I.C. RX M.I.C. RX --------- --- --------- --- AMPICILLIN >=32 R CEFAZOLIN R CEFEPIME <=1 S CEFOTAXIME R CIPROFLOXACIN <=0.25 S GENTAMICIN <=1 S LEVOFLOXACIN <=0.12 S MEROPENEM 0.008 S NITROFURANTOIN <=16 S TOBRAMYCIN <=1 S TRIMETHOPRIM/SULFAMETHOXAZOLE <=20 S PIPERACILLIN/TAZOBACTAM <=4 S ---- ............................................................................................ Flags: Critical Hi = *H Critical Lo = *L Microbiology Abnormal = * Abnormal Hi = H Abnormal Lo = L Blood Bank Abnormal = * Susceptability Flags: S = Sensitive R = Resistant I = Intermediate END OF REPORT Laboratory Tests Test 01/21/19 20:29 01/21/19 22:48 01/22/19 06:48 01/22/19 06:49 Bedside 337 290 Glucose mg/dL (70-220) mg/dL (70-220) Sodium Level 135 mmol/L (135-14 4) Potassium 4.2 Level mmol/L (3.5-5. 1) Chloride Level 103 mmol/L (97-110 ) Carbon Dioxide 27 Level mmol/L (21-31) Anion Gap 5 (5-13) Blood Urea 19 Nitrogen mg/dl (7-20) Creatinine 0.51 mg/dl (0.44-1. 00) Est Glomerular > 60 Filtrat mL/min (>60) Rate mL/min Glucose Level 267 mg/dl (70-220) Hemoglobin A1c > 14.0 % (0-5.9) Calcium Level 8.4 mg/dl (8.4-10. 2) White Blood 7.4 Count 10^3/ul (4.8-1 0.8) Red Blood 4.95 Count 10^6/ul (4.20- 5.40) Hemoglobin 12.7 g/dl (12.0-16. 0) Hematocrit 39.6 % (37.0-47.0) Mean 80.0 Corpuscular fl (82.0-101.0 Volume ) Mean 25.7 Corpuscular pg (29.0-33.0) Hemoglobin Mean 32.1 Corpuscular g/dl (32.0-37. Hemoglobin Conc 0) ent Red Cell 12.1 Distribution % (11.5-14.5) Width Platelet Count 161 10^3/UL (140-4 15) Mean Platelet 12.2 Volume fl (7.4-10.4) Immature 1.200 Granulocytes % % (0.001-0.429 ) Neutrophils % 56.1 % (39.0-77.0) Lymphocytes % 31.4 % (15.0-51.0) Monocytes % 9.8 % (0.0-11.0) Eosinophils % 0.8 % (0.0-7.0) Basophils % 0.7 % (0.0-2.0) Nucleated Red 0.0 Blood Cells % /100WBC (0.0-0 .0) Immature 0.090 Granulocytes # 10^3/ul (0.0-0 .031) Neutrophils # 4.1 10^3/ul (1.6-7 .5) Lymphocytes # 2.3 10^3/ul (0.8-2 .9) Monocytes # 0.7 10^3/ul (0.3-0 .9) Eosinophils # 0.1 10^3/ul (0.0-0 .5) Basophils # 0.1 10^3/ul (0.0-0 .1) Nucleated Red 0.0 Blood Cells # 10^3/ul (0.0-0 .0) Phosphorus 3.6 Level mg/dl (2.5-4.9 ) Magnesium 1.8 Level mg/dl (1.7-2.5 ) Test 01/22/19 08:10 01/22/19 12:31 01/22/19 17:04 Bedside 244 189 112 Glucose mg/dL (70-220) mg/dL (70-220) mg/dL (70-220) NURIA ROMERO NP January 22, 2019 17:56
[2019-01-22] MEDS ORDERED: metFORMIN 500 MG TAB PO SCH (18:00)
== END 2019-01-22 17:25 | disposition home or self-care (01) | DRG 638 ==
LOC: FTE 11:28 → 6WM 14:25 → SUATTDRO 14:26 → EDBEDREQSVC 14:45 → 2NE 01-18 21:05 → 5EC 01-20 23:54
PROVIDERS: ADMIT Internal Medicine; ATTEND Internal Medicine
DX: E11.65 Type 2 diabetes mellitus with hyperglycemia (principal); E87.1 Hypo-osmolality and hyponatremia; N39.0 Urinary tract infection, site not specified; F33.2 Major depressive disorder, recurrent severe without psychotic features; E86.9 Volume depletion, unspecified; E86.0 Dehydration; F17.200 Nicotine dependence, unspecified, uncomplicated; I16.0 Hypertensive urgency; I10 Essential (primary) hypertension; R42 Dizziness and giddiness; R00.0 Tachycardia, unspecified; B96.20 Unspecified Escherichia coli [E. coli] as the cause of diseases classified elsewhere; Z91.14 Patient's other noncompliance with medication regimen; Z59.0 Homelessness; Z16.12 Extended spectrum beta lactamase (ESBL) resistance; Z16.24 Resistance to multiple antibiotics
CPT/HCPCS: 36415; 71045; 76775; 80048; 80053; 80061; 80307; 81001; 82962; 83036; 83690; 83735; 84100; 84439; 84443; 84484; 85025; 87086; 93005; 96374; 96375; 96376; J0360; J0696; J1815; J1956; J2185; J2405; J7030